=== PATIENT | female | born 1935 | race Caucasian/White ===

== ENCOUNTER 2019-03-27 13:10 | Outpatient (CLI) | payer MEDICARE, SELFPAY ==
--- NOTE | ~2019-03-27 | CT_ITS ---
EXAMINATION: CT hip RT wo con DATE: 03/27/2019 13:43 INDICATION: Right hip contusion TECHNIQUE: High resolution computed tomography (CT) of the right hip was performed without intravenou s contrast. Additional sagittal and coronal reconstructions were performed. Automated exposure contro l and iterative reconstruction technique were employed. The dose-length product was 137.26 mGy-cm. COMPARISON: Radiographs dated 03/02/2019 and MRI dated 02/22/2019 FINDINGS: Again seen is antegrade intramedullary brandi and dynamic femoral neck screw and distal interlocking scr ew fixation of a comminuted basicervical fracture of the proximal right femur which also involves the greater trochanter. No evident instrumentation failure or periprosthetic lucency to suggest loosenin g. There is some bridging callus formation between the main femoral head neck fragment in the distal diaphyseal fragment which are in near-anatomic alignment. A fragment comprising the posterior two thi rds of the greater trochanter which is not included within the fixation although it does abut the pos terior margin of the intramedullary brandi remains ununited and minimally distracted. There is a small a mount of nonbridging callus formation along the posterior margin of the fracture. There is increasing sclerosis along the still lucent fracture plane which raises concern for nonunion. No acute fracture s identified. Right hip joint alignment is normal with mild osteoarthritis. Lower lumbar spondylosis with moderate bilateral lower lumbar facet osteoarthritis and mild disc height loss with vacuum pheno wagoner at L5-S1. Interval decrease in size of a small loculated fluid collection extending laterally fr om the region of the proximal aspect of the intramedullary brandi into the subcutaneous fat most likely representing a postoperative seroma. There is no significant inflammatory stranding in the surroundin g fat to elevate concern for abscess. No evident right hip joint effusion. The uterus is not identifi ed and has likely been surgically resected. No pathologically enlarged right pelvic or inguinal lymph adenopathy. IMPRESSION: 1. Healing internally fixed comminuted basicervical/greater trochanteric fracture of the proximal rig ht femur which is in near-anatomic alignment. A posterior greater trochanteric fragment is not includ ed within the fixation remains minimally distracted and ununited with appearance raising suspicion fo r developing nonunion. 2. Interval decrease in size since prior MRI from a small loculated subcutaneous fluid collection ext ending laterally from the tip of the intramedullary brandi without surrounding inflammatory stranding mo st likely a postoperative seroma. Reviewed, dictated and finalized at location A. ER OUT IMPRESSION: 1. Healing internally fixed comminuted basicervical/greater trochanteric fractu re of the proximal right femur which is in near-anatomic alignment. A posterior greater trochanteric fragment is not included within the fixation remains mini roro distracted and ununited with appearance raising suspicion for developing nonunion. 2. Interval decrease in size since prior MRI from a small loculated subcutaneou s fluid collection extending laterally from the tip of the intramedullary brandi w ithout surrounding inflammatory stranding most likely a postoperative seroma.
== END 2019-03-27 13:11 | disposition home or self-care (01) ==
PROVIDERS: PCP Family Medicine; Visit Provider Orthopaedic Surgery
DX: S70.01XD Contusion of right hip, subsequent encounter (principal)
CPT/HCPCS: 73700

== ENCOUNTER 2020-10-31 16:13 | Observation (INO) | payer MEDICARE, MEDICAID, SELFPAY ==
--- NOTE | 2020-10-16 14:49 | PC.NURSE ---
NO CHANGE IN HEALTH HX FROM LAST INTERVIEW ON 09/23/20 PER TOR KELLY
--- NOTE | 2020-10-29 11:22 | PM.IMHP ---
H&P: HPI History of Present Illness Date/Time: 10/29/20 11:22 Pt presents with recurrent right hip pain that has been present for a few years. She sustained a IT femur fx the proceeded to have an IM brandi insertion, DOS 11/01/2018. She has had pain, continuously, then underwent an trochanteric bursitis injection 04/03/2020 which provided relief for a very short time. Hardware removal was discussed at her last appointment. She would like to discuss, at this time. Involved hip: right Onset: sudden Location of pain: lateral Pain scale (0-10): 7 Character: dull ache and other (sharp ) Timing of pain: constant Exacerbated by: sitting, weight bearing, activities of daily living and prolonged activity Relieved by: Tylenol, ice, heat and rest Associated symptoms: Reports back pain, leg pain at rest and weakness History of occupational/recreational activity with repetitive movement: No History of prior hip injury: Yes (Pt. DOI: was approx 5weeks ago ) Prior treatment: rest, ice and other (aspiration of the hematoma ) Chief Complaint: RIGHT HIP PAIN WITH PAINFUL HARDWARE Review of Systems Review of Systems: All systems reviewed & are unremarkable except as noted in HPI and below Constitutional: Constitutional: Reports as per HPI and Reports no additional constitutional complaints Eyes: Eyes: Reports no additional eye complaints Respiratory: Respiratory: Reports no additional respiratory complaints Musculoskeletal: Comments: RIGHT HIP PAIN Neurologic: Reports system reviewed and no additional complaints, except as documented and Reports Normal hearing present [facility] Past Medical History Medical History Anxiety Appendicitis Arthritis Change in vision Depressed High blood pressure Rheumatic arteritis Surgical History Surgical History H/O: hysterectomy History of appendectomy History of cholecystectomy Family History Family History Other Arthritis Social History Social History Smoking packs per day: 1 Smoking cigarettes per day: 20.0 Years smoked: 25 Smoking pack-years: 25.00 Smoking status: Former smoker Tobacco type: cigarettes Second hand tobacco smoke exposure: Yes Smoking end date: 02/08/99 Alcohol intake: unknown Substance use: unknown Spiritual care concerns: No Meds Home Medications and Allergies Home Medications Medication Instructions Recorded Confirmed Type acetaminophen 325 mg capsule 650 mg PO Q6H PRN 12/12/18 10/16/20 History docusate sodium 100 mg capsule 100 mg PO DAILY 12/12/18 10/16/20 History dorzolamide (PF) 2 % (PF) eye drops 1 drop RIGHT EYE BID 12/12/18 10/16/20 History metoprolol tartrate 25 mg tablet 12.5 mg PO BID 12/12/18 10/16/20 History omeprazole 20 mg capsule,delayed 20 mg PO DAILY 12/12/18 10/16/20 History release ondansetron 4 mg disintegrating 4 mg PO PRN PRN 12/12/18 10/16/20 History tablet sennosides 8.6 mg tablet 8.6 mg PO PRN PRN tablet 12/12/18 10/16/20 History gabapentin 100 mg PO TID 09/20/20 10/16/20 History hydrocodone-acetaminophen 1 tablet PO TID 09/20/20 10/16/20 History lisinopril 10 mg PO DAILY 09/20/20 10/16/20 History mirtazapine 7.5 mg PO HS 09/20/20 10/16/20 History prednisolone acetate 1 drp RIGHT EYE BID 09/20/20 10/16/20 History trazodone 100 mg PO HS 09/20/20 10/16/20 History diclofenac sodium 1 ea TOPICAL DAILY 10/16/20 10/16/20 History trazodone 50 mg PO HS 10/16/20 10/16/20 History Allergies Allergy/AdvReac Type Severity Reaction Status Date / Time latex Allergy Unknown Hives / Verified 10/16/20 14:28 Red Face Penicillins Allergy Unknown Unknown Verified 10/16/20 14:28 MELINDA BANDAGE Allergy Mild HIVES Uncoded 10/16/20 14:28 Exam Extrem: Right lower extremity: normal to inspection, full ROM, normal capill
--- NOTE | 2020-10-29 11:34 | WPDHPUPDATE1 ---
History and Physical Update Update Date/Time: 10/29/20 11:34 History and Physical has been reviewed, including an updated exam of the patient. There are NO changes in the patient's condition. Risks, benefits, and alternatives have been discussed and questions answered. Patient agrees to proceed with procedure.
[2020-10-30] VITALS (24 sets, daily range): BP systolic 133–181; BP diastolic 56–100; PULSE 65–100; RESP 10–20; TEMP 36.4–37.6; O2SAT 92–100; BMI 16.8
[2020-10-30] MEDS: ACETAMINOPHEN 500 MG TABLET 1000 MG PO (08:55)
[2020-10-30] MEDS: CELECOXIB 200 MG CAPSULE PO (08:56)
[2020-10-30] MEDS: LACTATED RINGERS 1,000 ML 30 ML IV CONT ×2 (09:26→13:32)
[2020-10-30] MEDS: fentaNYL CITRATE INJ (*CRX) 100 MCG/2 ML VIAL 25 MCG IV PUSH ×14 (09:47→15:10)
--- NOTE | 2020-10-30 09:47 | WPDANESEPPF ---
Anes - Initial Pre Proc Eval Procedure: Operation Date: 10/30/20 10:30 Proposed Procedures p Right Hip Gamma Nail Removal - Arnulfo Singleton MD Date/Time: 10/30/20 09:47 Surgeon: Arnulfo Singleton MD Pre Op Diagnosis: right hip painful hardware Patient Data Age: 85 Gender: F Height: 1.57 m Weight: 41.7 kg Last Vital Signs Temp 36.7 C 10/30/20 09:34 Pulse 68 10/30/20 09:34 Resp 20 10/30/20 09:34 BP 181/83 H 10/30/20 09:34 Pulse Ox 96 10/30/20 09:34 Allergies Allergy/AdvReac Type Severity Reaction Status Date / Time latex Allergy Unknown Hives / Verified 10/30/20 08:58 Red Face Penicillins AdvReac Unknown Rash Verified 10/30/20 08:58 MELINDA BANDAGE Allergy Mild HIVES Uncoded 10/16/20 14:28 Home Medications Medication Instructions Recorded Confirmed Type acetaminophen 325 mg capsule 650 mg PO Q6H PRN 12/12/18 10/30/20 History docusate sodium 100 mg capsule 100 mg PO DAILY 12/12/18 10/30/20 History dorzolamide (PF) 2 % (PF) eye drops 1 drop RIGHT EYE BID 12/12/18 10/30/20 History metoprolol tartrate 25 mg tablet 12.5 mg PO BID 12/12/18 10/30/20 History omeprazole 20 mg capsule,delayed 20 mg PO DAILY 12/12/18 10/30/20 History release ondansetron 4 mg disintegrating 4 mg PO PRN PRN 12/12/18 10/30/20 History tablet sennosides 8.6 mg tablet 8.6 mg PO PRN PRN tablet 12/12/18 10/30/20 History gabapentin 100 mg PO TID 09/20/20 10/30/20 History hydrocodone-acetaminophen 1 tablet PO TID 09/20/20 10/30/20 History lisinopril 10 mg PO DAILY 09/20/20 10/30/20 History mirtazapine 7.5 mg PO HS 09/20/20 10/30/20 History prednisolone acetate 1 drp RIGHT EYE BID 09/20/20 10/30/20 History trazodone 100 mg PO HS 09/20/20 10/30/20 History diclofenac sodium 1 ea TOPICAL DAILY 10/16/20 10/30/20 History trazodone 50 mg PO HS 10/16/20 10/30/20 History Patient hx anesthesia problems: none Family hx anesthesia problems: none PMFSH Past Medical History Medical History Anxiety Appendicitis Arthritis Change in vision Depressed High blood pressure Rheumatic arteritis Surgical History Surgical History H/O: hysterectomy History of appendectomy History of cholecystectomy Family History Family History Other Arthritis Social History Social History Smoking packs per day: 1 Smoking cigarettes per day: 20.0 Years smoked: 25 Smoking pack-years: 25.00 Smoking status: Former smoker Tobacco type: cigarettes Second hand tobacco smoke exposure: Yes Smoking end date: 02/08/99 Alcohol intake: unknown Substance use: unknown Living arrangements: residential Spiritual care concerns: No Anes - Eval Final PreProcedure Day of Procedure 10/30/20 09:47 Patient weight: thin Heart: regular rate and rhythm Lungs: clear to auscultation Airway: Mallampati scale class II Neurological: other (alert) Last oral intake: >/= 8 hours ASA classification: III Emergent: no Anesthetic plan: proceed Anesthesia type and monitoring: general ETT and standard monitoring Informed Consent: The patient's anesthetic plan and its attendant risks and benefits were discussed with the patient/family/POA. Questions were solicited and answers provided to the satisfaction of the patient/family/POA.
--- NOTE | 2020-10-30 09:50 | SUR.PREOP ---
Patient is wheelchair bound and does not require crutch or walker training.
--- NOTE | 2020-10-30 10:32 | WPDHPUPDATE1 ---
History and Physical Update Update Date/Time: 10/30/20 10:32 History and Physical has been reviewed, including an updated exam of the patient. There are NO changes in the patient's condition. Risks, benefits, and alternatives have been discussed and questions answered. Patient agrees to proceed with procedure.
[2020-10-30] MEDS: ceFAZolin 2 GM/D5W 50 ML 2 GM/50 ML BAG IVPB (10:38)
--- NOTE | 2020-10-30 12:21 | W.PM.PROC2 ---
Procedure Note - Detailed Date of Procedure 10/30/20 Pre-op Diagnosis right hip painful hardware Post-op Diagnosis same Procedure Performed REMOVAL OF GAMMA NAIL RIGHT FEMUR Surgeon Arnulfo Singleton MD Anesthesia general Indications RIGHT HIP PAINFULL HARDWARE Findings HEALED FRACTURE ON FLUOROSCOPY Description of Procedure THE PATIENT WAS TAKEN TO THE OPERATING ROOM IN STABLE CONDITION AND GENERAL ANESTHESIA WAS INDUCED. SHE WAS PLACED ON A FRACTURE TABLE. THE RIGHT HIP WAS IMAGED AND TAKEN THROUGH A ROM UNDER FLUOROSCOPY. THERE WAS NO SIGN OF NON UNION OR HARDWARE FAILURE. NEXT THE RIGHT LOWER EXTREMITY WAS PREPPED AND DRAPED IN THE USUAL STERILE FASHION. AN INCISION WAS MADE OVER THE OLD INCISION FIRST OVER THE DISTAL LOCKING SCREW. THE SCREW WAS REMOVED IN ITS ENTIRETY. NEXT AN INCISION WAS MADE OVER THE MOST PROXIMAL SCAR AND THE SET SCREW WAS REMOVED IN ITS ENTIRETY. NEXT THE MIDDLE SCAR WAS INCISED AND DISSECTION CONTINUED DOWN TO THE LAG SCREW WHICH WAS THEN REMOVED WELL IN ITS ENTIRETY. THE MADHAVI THEN WAS REMOVED WITH A SLAP INSTRUMENT. . NEXT THE HIP AND PROXIMAL FEMUR WAS IMAGED WITH THE C-ARM. THERE WAS NO SIGN OF NON UNION. THE HEALED BONE WAS OBVIOUS AND THE HIP AND PROXIMAL FEMUR MOVED IN UNISON. THE WOUNDS WERE IRRIGATED. THE WOUNDS WERE APPROXIMATED WITH O VICRYL, 2-0 VICRYL AND A QUIL STITCH ON THE SUBCUTICULAR LAYER, AND DERMABOND WAS USED ON THE SKIN. STERILE DRESSING WAS APPLIED. PATIENT WAS EXTUBATED AND SENT TO RECOVERY ROOM Estimated Blood Loss 50 Complications No immediate complications Condition stable Disposition PACU
--- NOTE | 2020-10-30 16:15 | ADMGEN ---
This patient, Gema Laughlin, was admitted to 2 Medical Room 242-. Patient/family oriented to hospital policies and general routines including ID bracelet, bed and alarms, visiting hours, pain management, procedures, bathroom and other care routines, personal items, smoking policy, room service/diet, and visiting hours. Information on how to activate the Rapid Response Team has been discussed. Patient/Family are encouraged to report perceived risks to care and to ask questions if they do not understand what they are told or what they should do.
--- NOTE | 2020-10-30 16:25 | WPDCN ---
Assessment and Plan Assessment and plan (1) Painful orthopaedic hardware: Code(s): T84.84XA - Pain due to internal orthopedic prosthetic devices, implants and grafts, initial encounter Status: Acute (2) Hypertension: Code(s): I10 - Essential (primary) hypertension Status: Acute (3) Depression with anxiety: Code(s): F41.8 - Other specified anxiety disorders Status: Acute (4) Glaucoma: Code(s): H40.9 - Unspecified glaucoma Status: Chronic (5) Gastroesophageal reflux disease: Code(s): K21.9 - Gastro-esophageal reflux disease without esophagitis Status: Acute Additional Plan The patient is postoperative day 0 status post removal of gamma nail from the right femur. Wound care and pain control will be deferred to Dr. Singleton as well as DVT prophylaxis. Blood pressures were elevated postoperatively but have improved with pain control. Her home medications have been reviewed and resumed as appropriate. Thank you for allowing us to participate in this patient's care. Please do not hesitate to contact us with any questions. Supervising physician for this medical consultation is Dr. Arlette Juarez. HPI Data of Consult Date/Time: 10/30/20 16:25 Requesting Physician: Arnulfo Singleton MD Primary Care Provider: Abelino Cooper, Consult Narrative Narrative: This is an 85-year-old female with history of hypertension, GERD, glaucoma, depression, and anxiety whom the hospitalist service has been consulted for management of her medical conditions in the postoperative setting. She sustained a right intertrochanteric femur fracture treated with IM gamma brandi insertion in October 2018. Unfortunately she has had recurrent issues with pain in that right hip including a bout of trochanteric bursitis for which she received injections without long-lasting relief. Due to ongoing pain she opted for removal of hardware which was performed today under general anesthesia per Dr. Singleton. No immediate complications were documented an estimated blood loss was 50 mL. At the time my evaluation she is complaining of sharp shooting pain, rated 9/10, and she is telling me that the IV pain medications that they have been giving her ?are just not working. She denies fever, chills, sweats, chest pain, shortness of breath, nausea, and vomiting. She also denies paresthesias, skin color, temperature changes distal to the surgical site. Review of Systems Review of Systems: Twelve systems were reviewed. No fever, chills, or sweats. No recent cold or flu symptoms. She denies chest pain, pleuritic pain, shortness of breath. No nausea, vomiting, or dysuria. The patient is blind and spends majority of her time in the wheelchair though she is able to pivot transfer. Denies history of venous thromboembolism. Except as documented, all other systems were reviewed and are negative. [facility] Past Medical History Medical History (Updated 10/31/20 @ 02:53 by Isa Morales PA-C) Arthritis Arthritis Depression with anxiety Gastroesophageal reflux disease Glaucoma History of peptic ulcer Hypertension Legal blindness Rheumatic arteritis Surgical History Surgical History (Updated 10/31/20 @ 02:53 by Isa Morales PA-C) History of appendectomy History of arthroscopy of right knee History of bilateral cataract extraction History of cholecystectomy History of corneal transplant History of gastrectomy (1979) Secondary to peptic ulcers. History of hysterectomy History of repair of hip fracture (10/2018) IT Gamma brandi with subsequent hardware removal on 10/30/2020. Family History Family History (Updated 10/31/20 @ 02:54 by Isa Morales PA-C) Father Venous thromboembolism Mother Acute myocardial infarction Sibl
[2020-10-30] MEDS: HYDROcodone/acetaminophen (*CRX) 7.5-325 MG TABLET 1 TAB PO (17:10)
[2020-10-30] MEDS: DOCUSATE SODIUM 100 MG CAPSULE PO (17:10)
[2020-10-30] MEDS: GABAPENTIN 100 MG CAPSULE PO (17:33)
[2020-10-30] MEDS: MORPHINE SULFATE (*CRX) 2 MG/ML INJ IV PUSH (19:41)
[2020-10-30] MEDS: DORZOLAMIDE/TIMOLOL OPHTH SOL 10 ML BOTTLE 1 DROP RIGHT EYE (20:53)
[2020-10-30] MEDS: prednisoLONE ACETATE 1% OPHTH 5 ML 1 DROP RIGHT EYE (20:53)
[2020-10-30] MEDS: traZODone HCL 50 MG TABLET 100 MG PO (20:54)
[2020-10-30] MEDS: traZODone HCL 50 MG TABLET PO (20:54)
[2020-10-30] MEDS: METOPROLOL TARTRATE 12.5 MG TABLET PO (20:54)
[2020-10-30] MEDS: MIRTAZAPINE 7.5 MG TABLET PO (20:54)
[2020-10-31] VITALS (11 sets, daily range): BP systolic 105–135; BP diastolic 53–74; PULSE 70–98; RESP 14–18; TEMP 36.4–37.1; O2SAT 93–98; BMI 16.8
--- NOTE | ~2020-10-31 | XR_ITS ---
EXAMINATION: XR surgery orthopedic EXAM DATE: 10/30/2020 11:45 INDICATION: Right hip gamma nail removal. TECHNIQUE: Fluoroscopy used during XR surgery orthopedic performed by Dr. Arnulfo Singleton MD. Rad iologist was not present for the imaging or procedure. Total fluoroscopic time of 263 seconds. The DAP for this procedure was 0.6 mGym2. A total of 7 images sent to PACS from the exam. Correlation is made to x-ray 08/19/2020. FINDINGS: Initial image demonstrates right hip gamma nail. Subsequent images demonstrates lucency in the bone at location of previous hardware following removal. Correlate with procedure note. IMPRESSION: Fluoroscopy used during right hip gamma nail removal. Reviewed, dictated and finalized at location B.
[2020-10-31] MEDS: MORPHINE SULFATE (*CRX) 2 MG/ML INJ IV PUSH ×4 (00:12→14:53)
[2020-10-31] MEDS: HYDROcodone/acetaminophen (*CRX) 7.5-325 MG TABLET 1 TAB PO ×2 (03:05→08:48)
[2020-10-31 04:12] LABS: Basophils Percent Auto 0.5 % (0.2-1.2); Hematocrit 33.6 % (37.0-47.0); Hemoglobin 10.9 g/dL (12.0-15.0); Immature Granulocyte Absolute 0.02 K/mm3 (0.00-0.031); Immature Granulocyte Percent A 0.3 % (0-0.5); Lymphocytes Percent Auto 19.2 % (18.3-44.2); Mean Corpuscular HGB Conc 32.4 g/dl (32-36); Mean Corpuscular Volume 86.4 fl (80-100); Mean Platelet Volume 9.5 fl (7.4-10.4); Monocytes Absolute Auto 0.6 K/mm3 (0.1-0.6); Monocytes Percent Auto 9.1 % (2.6-8.5); Neutrophils Absolute Auto 4.4 K/mm3 (1.3-6.7); Neutrophils Percent Auto 70.9 % (45.5-73.1); Platelet Count Result 222 k/mm3 (150-375); Red Blood Count 3.89 M/mm3 (4.2-5.4); Red Cell Distribution Width 13.7 % (11.5-14.5); White Blood Count 6.3 K/mm3 (4.5-10.0)
[2020-10-31 04:28] LABS: Anion Gap 3 mmol/L (8-16); Blood Urea Nitrogen 11 mg/dL (7-17); Calcium 8.8 mg/dL (8.4-10.2); Carbon Dioxide 32 mmol/L (22-30); Chloride 101 mmol/L (98-107); Estimated CRCL calculation 38 ml/min; Estimated Glomerular Filt Rate > 60; Glucose 108 mg/dL (65-110); Potassium 4.3 mmol/L (3.4-5.0); Sodium 136 mmol/L (137-145)
--- NOTE | 2020-10-31 07:25 | P.PNAN_ITS ---
Anes - Prog Note Post-Op Date/Time: 10/31/20 07:25 Cardiovascular status: normal Respiratory status: normal Airway patency: baseline Mental status: baseline Post-Op hydration status: normal Vital Signs: Last Vital Signs Temp 97.5 F L 10/31/20 06:07 Pulse 78 10/31/20 06:07 Resp 14 10/31/20 06:07 BP 114/56 L 10/31/20 06:07 Pulse Ox 94 10/31/20 06:07 Pain Score (VAS): MARTA I/O: Intake & Output 10/30/20 10/30/20 10/31/20 15:59 23:59 07:59 Intake Total 450 290 400 Output Total 1400 1400 Balance 450 -6080 1000 Laboratory Tests 10/31/20 03:50 10/31/20 03:50 10/31/20 10/31/20 03:50 03:50 WBC 6.3 RBC 3.89 L Hgb 10.9 L Hct 33.6 L MCV 86.4 MCH 28.0 MCHC 32.4 RDW 13.7 Plt Count 222 MPV 9.5 Immature Gran % (Auto) 0.3 Neut % (Auto) 70.9 Lymph % (Auto) 19.2 Colbert % (Auto) 9.1 H Eos % (Auto) 0.0 Baso % (Auto) 0.5 Lymph # (Auto) 1.20 Colbert # (Auto) 0.6 Eos # (Auto) 0.0 Baso # (Auto) 0.0 Abs Immat Gran (auto) 0.02 Absolute Neuts (auto) 4.4 Absolute Nucleated RBC 0.0 Nucleated RBC % 0.0 Sodium 136 L Potassium 4.3 Chloride 101 Carbon Dioxide 32 H Anion Gap 3 L BUN 11 Creatinine 0.60 L Estim Creat Clear Calc 38 Estimated GFR > 60 Glucose 108 Calcium 8.8 Post-procedural complaints: none Patient Feedback: Patient satisfied with anesthetic care.
[2020-10-31] MEDS: PANTOPRAZOLE 40 MG TABLET PO (08:41)
[2020-10-31] MEDS: lisinopriL 10 MG TABLET PO (08:41)
[2020-10-31] MEDS: DOCUSATE SODIUM 100 MG CAPSULE PO (08:41)
[2020-10-31] MEDS: GABAPENTIN 100 MG CAPSULE PO ×3 (08:41→16:19)
[2020-10-31] MEDS: METOPROLOL TARTRATE 12.5 MG TABLET PO ×2 (08:41→21:26)
[2020-10-31] MEDS: prednisoLONE ACETATE 1% OPHTH 5 ML 1 DROP RIGHT EYE ×2 (08:41→21:26)
[2020-10-31] MEDS: DORZOLAMIDE/TIMOLOL OPHTH SOL 10 ML BOTTLE 1 DROP RIGHT EYE ×2 (08:41→21:26)
--- NOTE | 2020-10-31 09:20 | PM.IMPN ---
Progress Note: A&P Assessment and Plan (1) Painful orthopaedic hardware: Code(s): T84.84XA - Pain due to internal orthopedic prosthetic devices, implants and grafts, initial encounter Status: Acute Assessment and Plan: Status post removal of gamma nail from the right femur postop day 1 - patient continues to have pain 9/10 but has not had her pain medication yet. The nurse is at bedside and will give this to her - continue [place] now and see how she does. May consider a trial of oxycodone or other medications if this does not improve - continue nonweightbearing status x6 weeks - okay to discharge from medical standpoint when ortho is ready (2) Hypertension: Code(s): I10 - Essential (primary) hypertension Status: Acute Assessment and Plan: last blood pressure 135/61 - continue lisinopril and metoprolol (3) Depression with anxiety: Code(s): F41.8 - Other specified anxiety disorders Status: Acute Assessment and Plan: the patient has chronic depression so worsened with this hip pain but is hopeful that she can walk again 1 day - continue Remeron (4) Glaucoma: Code(s): H40.9 - Unspecified glaucoma Status: Chronic Assessment and Plan: chronic with changes noted. Continue eyedrops (5) Gastroesophageal reflux disease: Code(s): K21.9 - Gastro-esophageal reflux disease without esophagitis Status: Acute Assessment and Plan: chronic and no complaints today - continue Protonix Time Spent With Patient Time with patient: 25 - 35 minutes Subjective Date/time seen: 10/31/20 09:20 Interval history: Pt is a 85-year-old female here for hip pain status post surgery. Patient was seen today and states she currently has a 9/10 hip pain in her right hip. She has no numbness, tingling or swelling to the leg. She does not have much of an appetite but that is pretty chronic for her. Her last bowel movement was on Wednesday. She has been in the wheelchair for most of the time since her hip fracture is hopeful to walk again 1 day. I did speak with her and family at bedside that it may be a long road since she has been more sedentary for so long. They understand that she needs to be non weight-bearing for 6 weeks. patient has no chest pain or shortness of breath Review of Systems Review of Systems: All systems reviewed & are unremarkable except as noted in HPI and below Exam Narrative: General: Well developed well nourished patient in NAD HEENT: normocephalic, changes from glaucoma noted Neck: supple Neuro: Alert and oriented. Sensation and pulses intact in the lower extremities. CV:RRR With a slight murmur Resp:CTA, no rhonchi, wheezing or conversational dyspnea Abd: Soft, non distended. No pain to palpation. Positive bowel sounds Extremities: right hip with bandage the without excessive bleeding noted. No knee swelling to the lower extremities Objective Data Vital Signs Vital Signs: Vital Signs - 24 hr 10/30/20 09:34 10/30/20 12:17 10/30/20 12:30 Temperature 98.0 F 97.8 F Pulse Rate 68 65 88 Respiratory Rate 20 10 L 14 Blood Pressure 181/83 H 151/74 H 155/87 H Pulse Oximetry 96 100 98 10/30/20 12:45 10/30/20 13:00 10/30/20 13:15 Temperature Pulse Rate 88 79 79 Respiratory Rate 16 12 16 Blood Pressure 166/77 H 166/77 H 158/90 H Pulse Oximetry 100 100 99 10/30/20 13:30 10/30/20 13:45 10/30/20 14:00 Temperature Pulse Rate 74 69 69 Respiratory Rate 18 12 14 Blood Pressure 147/71 H 142/81 H 154/70 H Pulse Oximetry 97 100 99 10/30/20 14:15 10/30/20 14:30 10/30/20 14:45 Temperature Pulse Rate 82 78 72 Respiratory Rate 13 12 14 Blood Pressure 147/77 H 178/87 H 133/61 Pulse Oximetry 100 98 98 10/30/20 15:00 10/30/20 15:15 10/30/20 15:30 Temperature Pulse Rate 68 74 69 Respiratory Rate 14 14 12 Blood Pressure 142/56 H 145/60 H 145/62 H Pulse Oximetry 98 98 97
--- NOTE | 2020-10-31 09:48 | PC.NURSE ---
Patient's POA came out the desk before leaving and told me patient's pain is still out of control and the [place] did not help her pain. I walked into the patient's room to assess her pain and the patient was sleeping comfortably. Will continue to monitor pain.
--- NOTE | 2020-10-31 13:16 | PC.NURSE ---
while I was on lunch the patient told another nurse that her pain was not controlled. Upon returning from lunch I went to assess the patient's pain. The patient is sleeping. Appears to be resting comfortable. Will speak to the physician about pain medications.
--- NOTE | 2020-10-31 15:57 | PM.PNORT ---
Progress Note: A&P Assessment and Plan (1) Painful orthopaedic hardware: Code(s): T84.84XA - Pain due to internal orthopedic prosthetic devices, implants and grafts, initial encounter Status: Acute Assessment and Plan: POD #1: REMOVAL OF GAMMA NAIL RIGHT FEMUR Difficulty with pain control. PO Pain Medication Q3hr with IV breakthrough. Ice lateral hip. PT/OT. NWB RLE. OOB to Chair. SCDs. Incentive Spirometry. Monitor dressing. Change tomorrow. Apply island dressing. Dispo: Return to SNF when pain controlled and medically cleared. Subjective Subjective Date/Time Seen: 10/31/20 15:57 Post Op day: 1 Principal diagnosis: REMOVAL OF GAMMA NAIL RIGHT FEMUR Interval history: POD #1: Removal of Gamma Nail Right Femur Difficulty with Pain Control. Otherwise, no complaints. Review of Systems Review of Systems: All systems reviewed & are unremarkable except as noted in HPI and below Exam Const: General: comfortable and no acute distress Resp: Effort & Inspection: normal respiratory effort GI: Inspection: non-distended GI Palp: Yes Soft to palpation and No Tenderness to palpation present (GI) Skin: General skin exam: normal color Wounds: wounds noted (Incision right hip c/d/i. ) Neuro: General: No gait normal Cognition (Neuro): normal cognition Extrem: Right lower extremity: hip/thigh (Thigh Soft ) Details: tenderness Location: of the hip Location: anteriorly, posteriorly, anterolaterally and posteromedially, swelling Location: at the hip and abnormal ROM Details: pain with active ROM during (consistent with recent surgery ), knee Details: normal to inspection; no tenderness and no swelling, lower leg (Negative Dat's Sign ) Details: normal to inspection, ankle (+ankle dorsiflexion/plantarflexion ) and foot (2+ pedal pulses. ) Details: normal capillary refill and motor-sensory exam Details: light-touch normal Psych: Mental Status: mental status grossly normal Thought content: Yes Normal thought content present Objective Data Vital Signs Vital Signs: Vital Signs - 24 hr 10/30/20 16:02 10/30/20 16:15 10/30/20 16:32 Temperature 36.6 C 37.0 C Pulse Rate 79 100 Respiratory Rate 16 16 Blood Pressure 153/72 H 154/83 H Pulse Oximetry 95 100 92 10/30/20 17:32 10/30/20 20:00 10/30/20 20:39 Temperature 37.6 C 36.4 C Pulse Rate 99 100 100 Respiratory Rate 16 16 16 Blood Pressure 163/85 H 135/67 Pulse Oximetry 95 95 95 10/30/20 20:54 10/31/20 01:16 10/31/20 06:07 Temperature 36.6 C 36.4 C L Pulse Rate 100 98 78 Respiratory Rate 16 14 Blood Pressure 130/69 114/56 L Pulse Oximetry 96 94 10/31/20 08:40 10/31/20 08:41 10/31/20 09:00 Temperature 37.1 C Pulse Rate 70 75 Respiratory Rate 18 Blood Pressure 135/61 Pulse Oximetry 94 94 10/31/20 13:32 Temperature 36.9 C Pulse Rate 79 Respiratory Rate 16 Blood Pressure 130/71 Pulse Oximetry 96 Intake/Output Intake/Output: Intake & Output 10/28/20 10/29/20 10/30/20 10/31/20 23:59 23:59 23:59 23:59 Intake Total 740 730 Output Total 1400 1400 Balance -660 -670 Meds/Results Medications: Active Medications Generic Name Dose Route Start Last Admin Trade Name Freq PRN Reason Stop Dose Admin Acetaminophen 650 mg 10/30/20 15:47 Acetaminophen 325 Mg Tablet PO Q6H PRN Pain 1-3 Hydrocodone Bitart/Acetaminophen 1 tab 10/30/20 15:47 10/31/20 08:48 Hydrocodone/Acetaminophen (*Crx) 7.5-325 Mg Tablet PO 1 tab Q3H PRN Administration Pain Rated 4-6 Diazepam 5 mg 10/30/20 15:47 Diazepam (*Crx) 5 Mg Tablet PO Q8H PRN Muscle Spasm Docusate Sodium 100 mg 10/31/20 09:00 10/31/20 08:41 Docusate Sodium 100 Mg Capsule PO 100 mg DAILY MUSHTAQ Administration Dorzolamide/Timolol 1 drop 10/30/20 21:00 10/31/20 08:41 Dorzolamide/Timolol Ophth [place] 10 Ml Bottle RIGHT EYE 1 drop Q12HR MUSHTAQ Administration Gabapentin 100 mg 10/30/20 15:47 10/31/20 12:
[2020-10-31] MEDS: KETOROLAC 15 MG/ML VIAL (*BKC) IV PUSH (16:19)
[2020-10-31] MEDS: traZODone HCL 50 MG TABLET PO (21:25)
[2020-10-31] MEDS: MIRTAZAPINE 7.5 MG TABLET PO (21:25)
[2020-10-31] MEDS: traZODone HCL 50 MG TABLET 100 MG PO (21:26)
[2020-10-31] MEDS: ONDANSETRON INJ 4 MG/2 ML VIAL IV PUSH (21:34)
[2020-11-01 03:35] VITALS: BP 100/42; PULSE 67; RESP 17; TEMP 36.6; O2SAT 94
[2020-11-01] MEDS: MORPHINE SULFATE (*CRX) 2 MG/ML INJ IV PUSH (05:26)
[2020-11-01 08:55] VITALS: PULSE 77
[2020-11-01] MEDS: DOCUSATE SODIUM 100 MG CAPSULE PO (08:55)
[2020-11-01] MEDS: GABAPENTIN 100 MG CAPSULE PO ×2 (08:55→11:58)
[2020-11-01] MEDS: METOPROLOL TARTRATE 12.5 MG TABLET PO (08:55)
[2020-11-01] MEDS: prednisoLONE ACETATE 1% OPHTH 5 ML 1 DROP RIGHT EYE (08:55)
[2020-11-01] MEDS: PANTOPRAZOLE 40 MG TABLET PO (08:55)
[2020-11-01] MEDS: lisinopriL 10 MG TABLET PO (08:55)
[2020-11-01] MEDS: DORZOLAMIDE/TIMOLOL OPHTH SOL 10 ML BOTTLE 1 DROP RIGHT EYE (08:56)
[2020-11-01] MEDS: HYDROcodone/acetaminophen (*CRX) 7.5-325 MG TABLET 1 TAB PO (08:56)
--- NOTE | 2020-11-01 09:55 | PM.PNORT ---
Progress Note: A&P Assessment and Plan (1) Painful orthopaedic hardware: Code(s): T84.84XA - Pain due to internal orthopedic prosthetic devices, implants and grafts, initial encounter Status: Acute Assessment and Plan: POD #2: REMOVAL OF GAMMA NAIL RIGHT FEMUR Improvement in pain control. PO Pain Medication Q3hr with IV breakthrough. Ice lateral hip. PT/OT. NWB RLE. OOB to Chair. SCDs. Incentive Spirometry. Dressing changed. Mepilex Silver dressing in place. Thigh soft. Dispo: SNF Subjective Subjective Date/Time Seen: 11/01/20 09:55 Post Op day: 2 Interval history: POD #2: Removal of Gamma Nail Right Femur Difficulty with Pain Control. Otherwise, no complaints. Review of Systems Review of Systems: All systems reviewed & are unremarkable except as noted in HPI and below Exam Const: General: comfortable and no acute distress Resp: Effort & Inspection: normal respiratory effort GI: Inspection: non-distended GI Palp: Yes Soft to palpation and No Tenderness to palpation present (GI) Skin: General skin exam: normal color Wounds: wounds noted (Incision right hip c/d/i. ) Neuro: General: No gait normal Cognition (Neuro): normal cognition Extrem: Right lower extremity: hip/thigh (Thigh Soft ) Details: tenderness Location: of the hip Location: anteriorly, posteriorly, anterolaterally and posteromedially, swelling Location: at the hip and abnormal ROM Details: pain with active ROM during (consistent with recent surgery ), knee Details: normal to inspection; no tenderness and no swelling, lower leg (Negative Dat's Sign ) Details: normal to inspection, ankle (+ankle dorsiflexion/plantarflexion ) and foot (2+ pedal pulses. ) Details: normal capillary refill and motor-sensory exam Details: light-touch normal Psych: Mental Status: mental status grossly normal Thought content: Yes Normal thought content present Objective Data Vital Signs Vital Signs: Vital Signs - 24 hr 10/31/20 13:32 10/31/20 17:32 10/31/20 19:28 Temperature 36.9 C 36.9 C 36.4 C L Pulse Rate 79 78 78 Respiratory Rate 16 16 17 Blood Pressure 130/71 130/74 115/53 L Pulse Oximetry 96 98 96 10/31/20 20:00 10/31/20 21:26 10/31/20 23:31 Temperature 36.6 C Pulse Rate 75 78 75 Respiratory Rate 17 17 Blood Pressure 105/53 L Pulse Oximetry 93 93 11/01/20 03:35 11/01/20 08:55 Temperature 36.6 C Pulse Rate 67 77 Respiratory Rate 17 Blood Pressure 100/42 L Pulse Oximetry 94 Intake/Output Intake/Output: Intake & Output 10/29/20 10/30/20 10/31/20 11/01/20 23:59 23:59 23:59 23:59 Intake Total 740 730 50 Output Total 1400 1600 300 Balance -660 -870 -250 Meds/Results Medications: Active Medications Generic Name Dose Route Start Last Admin Trade Name Freq PRN Reason Stop Dose Admin Acetaminophen 650 mg 10/30/20 15:47 Acetaminophen 325 Mg Tablet PO Q6H PRN Pain 1-3 Hydrocodone Bitart/Acetaminophen 1 tab 10/30/20 15:47 11/01/20 08:56 Hydrocodone/Acetaminophen (*Crx) 7.5-325 Mg Tablet PO 1 tab Q3H PRN Administration Pain Rated 4-6 Diazepam 5 mg 10/30/20 15:47 Diazepam (*Crx) 5 Mg Tablet PO Q8H PRN Muscle Spasm Docusate Sodium 100 mg 10/31/20 09:00 11/01/20 08:55 Docusate Sodium 100 Mg Capsule PO 100 mg DAILY MUSHTAQ Administration Dorzolamide/Timolol 1 drop 10/30/20 21:00 11/01/20 08:56 Dorzolamide/Timolol Ophth [place] 10 Ml Bottle RIGHT EYE 1 drop Q12HR MUSHTAQ Administration Gabapentin 100 mg 10/30/20 15:47 11/01/20 08:55 Gabapentin 100 Mg Capsule PO 100 mg TID MUSHTAQ Administration Ketorolac Tromethamine 15 mg 10/31/20 13:24 10/31/20 16:19 Ketorolac 15 Mg/Ml Vial (*Bkc) IV PUSH 15 mg Q6H PRN Administration Breakthrough Pain Lisinopril 10 mg 10/31/20 09:00 11/01/20 08:55 Lisinopril 10 Mg Tablet PO 10 mg DAILY MUSHTAQ Administration Magnesium Hydroxide 30 ml 10/30/20 15:47 Magnesium Hydroxi
[2020-11-01] MEDS: MAGNESIUM HYDROXIDE SUSP 30 ML UDC PO (11:58)
[2020-11-01 14:00] VITALS: BP 90/41; BP 94/52; PULSE 71; RESP 16; TEMP 37.3; O2SAT 92
[2020-11-01] MEDS: ACETAMINOPHEN 325 MG TABLET 650 MG PO (14:30)
[2020-11-01 14:32] LABS: EDCOVIDSCREEN Negative (Negative)
[2020-11-01 15:25] VITALS: BP 105/49
--- NOTE | 2020-11-12 12:08 | PM.DS ---
DS: Admitting Diagnosis Discharge Date 11/01/20 Admitting Diagnosis Painful orthopedic hardware right hip DS: Discharge Diagnosis Discharge Diagnosis (1) Painful orthopaedic hardware: Code(s): T84.84XA - Pain due to internal orthopedic prosthetic devices, implants and grafts, initial encounter Status: Acute Assessment and Plan: POD #2: REMOVAL OF GAMMA NAIL RIGHT FEMUR Improvement in pain control. PO Pain Medication Q3hr with IV breakthrough. Ice lateral hip. PT/OT. NWB RLE. OOB to Chair. SCDs. Incentive Spirometry. Dressing changed. Mepilex Silver dressing in place. Thigh soft. Dispo: SNF DS: Summary Hospital Course Reason for hospitalization: painful orthopedic hardware right hip Hospital Course: 85-year-old female admitted status post removal of painful orthopedic hardware of her right hip. She had a removal of her gamma brandi. She had difficulty with pain control on postop day 1 and postop day 2. She had difficulty working with PT and OT due to pain control. Her pain slowly improved on postop day 2 when she was felt safe to be discharged to [facility]. Patient will follow-up in the Outpatient Orthopedic clinic. Status at Discharge Functional status at discharge: uses cane/walker (Max Assist ) Overall status at discharge: patient is progressing back to baseline Time Spent with Patient Time attestation: Total time spent providing and/or coordinating discharge services: Exam Const: General: comfortable and no acute distress Resp: Effort & Inspection: normal respiratory effort GI: Inspection: non-distended GI Palp: Yes Soft to palpation and No Tenderness to palpation present (GI) Skin: General skin exam: normal color Wounds: wounds noted (Incision right hip c/d/i. ) Neuro: General: No gait normal Cognition (Neuro): normal cognition Extrem: Right lower extremity: hip/thigh (Thigh Soft ) Details: tenderness Location: of the hip Location: anteriorly, posteriorly, anterolaterally and posteromedially, swelling Location: at the hip and abnormal ROM Details: pain with active ROM during (consistent with recent surgery ), knee Details: normal to inspection; no tenderness and no swelling, lower leg (Negative Dat's Sign ) Details: normal to inspection, ankle (+ankle dorsiflexion/plantarflexion ) and foot (2+ pedal pulses. ) Details: normal capillary refill and motor-sensory exam Details: light-touch normal Psych: Mental Status: mental status grossly normal Thought content: Yes Normal thought content present Discharge Plan Discharge Attending physician on discharge: Arnulfo Singleton Consulting providers: [facility] ; Elina Silva ; Arlette Juarez ; Piotr Linn ; Isa Morales ; Kathy Winchester ; Adrian Mixon Discharging Clinician: Kathy Winchester Patient Disposition: SNF Activity: may shower, no driving and follow weight bearing status Diet: as tolerated Wound Care Instructions: follow printed instructions Discharge Instructions: Orthopedic Recommendations Dr. Arnulfo Singleton [phone] Change dressing daily. Apply island dressing to the right lateral hip. Keep dry. No weight bearing of the right lower extremity. HIGH FALL RISK. Out of bed to chair. Pain control. Contact our office at [phone] with any questions or concerns regarding your hip. Follow up appt indicated below. Patient Instructions: Help Prevent Suicide (DC), Help Prevent Suicide (GEN), Help Prevent Suicide in Older Adults (DC), Depression in Older Adults (ED) Follow-up/Referrals: Arnulfo Singleton MD [Physician] - 11/15/20 10:00 am Discharge Medications: New hydrocodone-acetaminophen 7.5-325 mg Tablet 1 tablet PO Q3H PRN (Reason: Pain Rated 4-6) Qty: 56 RF: 0 heparin (porcine) 5,000 unit/mL Solution 5,000 units subcut Q12HR 14 Days Qty: 28 RF: 0 Continued docusate sodium 100 mg capsule 100 mg PO DAILY RF: 0 dorzol
== END 2020-11-01 15:36 ==
LOC: ANHSURGERY 16:18 → ANH2MED 16:18
PROVIDERS: Admitting Provider Orthopaedic Surgery; PCP Internal Medicine; Visit Provider Orthopaedic Surgery
PROC: (CPT 20680; principal; 2020-10-30 10:30)
DX: T84.84XA Pain due to internal orthopedic prosthetic devices, implants and grafts, initial encounter (principal); M70.61 Trochanteric bursitis, right hip; I10 Essential (primary) hypertension; K21.9 Gastro-esophageal reflux disease without esophagitis; F41.8 Other specified anxiety disorders; D64.9 Anemia, unspecified; Z87.891 Personal history of nicotine dependence; Z20.822 Contact with and (suspected) exposure to COVID-19
CPT/HCPCS: 20680; 36415; 80048; 85025; 87426; 97110; 97161; 97165; 97535; A9270; C9803; G0378; J0690; J1100; J1885; J2270; J2405; J2704; J3010; J7120

== ENCOUNTER 2021-05-14 12:48 | Observation (INO) | payer OTHER, SELFPAY ==
[2021-05-14] VITALS (10 sets, daily range): BP systolic 131–162; BP diastolic 60–89; PULSE 65–84; RESP 12–17; TEMP 36.2–36.6; O2SAT 95–99; BMI 16.0
--- NOTE | ~2021-05-14 | NM_ITS ---
EXAMINATION: NM sandeep stress w perfusion DATE: 05/16/2021 13:30 INDICATION: Chest pain. TECHNIQUE: Rest images were obtained following intravenous administration of 9.9 mCi Tc99m tetrofosmi n (Myoview). The patient was infused intravenously with Lexiscan (regadenoson). Then, 29.1 mCi Tc99m tetrofosmin (Myoview) was administered intravenously, and stress images were obtained. Data was recon structed into short axis and horizontal and vertical long axis SPECT images. Gated SPECT images were also obtained. COMPARISON: Chest CT 05/14/2021 FINDINGS: There is no definite reversible or fixed perfusion abnormality to suggest ischemia or infar ction. There is no segmental wall motion abnormality. Left ventricular ejection fraction measures > 70%. IMPRESSION: 1. No definite ischemia or infarct. 2. Normal left ventricular ejection fraction measuring >70%. Reviewed, dictated and finalized at location A.
--- NOTE | ~2021-05-14 | US_ITS ---
US abdomen limited DATE: 05/16/2021 18:47 INDICATION: Left upper quadrant evaluation of spleen TECHNIQUE: Real-time imaging of left upper quadrant with attention to spleen COMPARISON: None FINDINGS: There is limited visualization of the spleen due to anatomy and surrounding bowel gas. CT a bdomen would likely be much more productive for evaluation of the spleen IMPRESSION: Limited examination Reviewed, dictated and finalized at Location A. Reviewed, dictated and finalized at location A. IMPRESSION: Limited examination
--- NOTE | ~2021-05-14 | CT_ITS ---
EXAMINATION: CTA chest PE protocol DATE: 05/14/2021 14:26 INDICATION: cp,syncope TECHNIQUE: Computed tomography angiography (CTA) of the chest was performed with 100 mL Omnipaque-350 intravenous contrast timed to evaluate the pulmonary arteries. Coronal maximum intensity projection 3D-reconstructions were created by the technologist. The dose-length product (DLP) was 134.28 mGy-cm. Automated exposure control and iterative reconstruction technique were employed. COMPARISON: XR chest, same date. FINDINGS: Study quality: Adequate Pulmonary arteries: No pulmonary emboli detected. Central pulmonary artery dilation as can be seen wi th pulmonary arterial hypertension. Thoracic aorta: Mild atherosclerotic calcifications. Mild dilation, maximum AP diameter 30 mm. Lung parenchyma and airways: Senescent changes and scattered pleural parenchymal scarring. Thoracic inlet, axillae and chest wall: Unremarkable. Mediastinum: Surgical clips at the GE junction, otherwise normal. Heart and pericardium: Normal. Coronary artery calcifications: Mild. Pleura: Unremarkable. Upper abdomen: No significant finding. Bones: No acute osseous finding. Diffuse osteopenia. Mid thoracic vertebral body hemangioma. Superior endplate deformities at the thoracolumbar junction. IMPRESSION: No CT evidence of pulmonary embolus. Reviewed, dictated and finalized at location K.
--- NOTE | ~2021-05-14 | XR_ITS ---
EXAMINATION: XR chest 1V portable EXAM DATE: 05/14/2021 13:00 INDICATION: Chest pain. TECHNIQUE: Portable AP frontal chest x-ray was obtained. Comparison is made to prior examination from 11/01/2018. FINDINGS: Chronic hyperinflation. No confluent consolidation, pneumothorax or pleural effusion suspec lauren. Cardiomediastinal silhouette is normal. The bones are osteopenic. There are bony degenerative c hanges. IMPRESSION: 1. No acute cardiopulmonary findings. 2. Hyperinflation. Reviewed, dictated and finalized at location A.
--- NOTE | 2021-05-14 12:52 | ECG_ITS ---
Measurements Intervals [place] Rate: 85 P: 61 [place]: 163 QRS: 45 QRSD: 85 T: 59 QT: 376 QTc: 447 Interpretive Statements SINUS RHYTHM WITH OCCASIONAL VENTRICULAR PREMATURE COMPLEXES LEFT ATRIAL ENLARGEMENT [-0.15mV P WAVE IN V1/V2] MINIMAL ST DEPRESSION [0.025+ mV ST DEPRESSION] COMPARED TO ECG 10/31/2018 17:40:17 NO SIGNIFICANT CHANGE Electronically Signed On 05-14-2021 14:26:40 CDT by Joslyn Jennings M.D.
[2021-05-14 13:08] LABS: Basophils Percent Auto 0.6 % (0.2-1.2); Eosinophils Absolute Auto 0.1 K/mm3 (0-0.3); Eosinophils Percent Auto 1.4 % (0-4.4); Hematocrit 41.5 % (37.0-47.0); Hemoglobin 13.2 g/dL (12.0-15.0); Immature Granulocyte Absolute 0.01 K/mm3 (0.00-0.031); Immature Granulocyte Percent A 0.2 % (0-0.5); Lymphocytes Absolute Auto 1.71 K/mm3 (0.9-3.2); Lymphocytes Percent Auto 35.1 % (18.3-44.2); Mean Corpuscular HGB Conc 31.8 g/dl (32-36); Mean Corpuscular Hemoglobin 28.2 pg (26-34); Mean Corpuscular Volume 88.7 fl (80-100); Mean Platelet Volume 9.2 fl (7.4-10.4); Monocytes Absolute Auto 0.3 K/mm3 (0.1-0.6); Monocytes Percent Auto 5.3 % (2.6-8.5); Neutrophils Absolute Auto 2.8 K/mm3 (1.3-6.7); Neutrophils Percent Auto 57.4 % (45.5-73.1); Platelet Count Result 256 k/mm3 (150-375); Red Blood Count 4.68 M/mm3 (4.2-5.4); Red Cell Distribution Width 14.2 % (11.5-14.5); White Blood Count 4.9 K/mm3 (4.5-10.0)
[2021-05-14 13:18] LABS: INR 0.8
[2021-05-14 13:21] LABS: D Dimer 1.01 ug/mL (<0.48)
[2021-05-14] MEDS: ONDANSETRON INJ 4 MG/2 ML VIAL IV PUSH (13:25)
[2021-05-14] MEDS: PANTOPRAZOLE SODIUM IV 40 MG VIAL IV PUSH (13:26)
[2021-05-14] MEDS: MORPHINE SULFATE (*CRX) 2 MG/ML INJ IV PUSH (13:26)
[2021-05-14 13:34] LABS: Alanine Aminotransferase 10 U/L (4-35); Albumin Level 4.1 g/dL (3.5-5.1); Alkaline Phosphatase 131 U/L (38-126); Anion Gap 4 mmol/L (8-16); Aspartate Amino Transferase 24 U/L (14-36); Bilirubin,Total 0.3 mg/dL (0.2-1.3); Blood Urea Nitrogen 9 mg/dL (7-17); Carbon Dioxide 32 mmol/L (22-30); Chloride 102 mmol/L (98-107); Estimated Glomerular Filt Rate > 60; Glucose 124 mg/dL (65-110); Sodium 138 mmol/L (137-145)
[2021-05-14 13:39] LABS: NT Pro B Type Natriuretic Pept 317 pg/mL (5-100); Troponin I < 0.012 ng/mL (0.000-0.034)
--- NOTE | 2021-05-14 14:15 | PC.NURSE ---
Spoke to [facility] - Raquel WHITING and gave update on pt status. Requesting reports/updates be given at [phone]
--- NOTE | 2021-05-14 14:18 | PC.NURSE ---
Pt to CT scan via stretcher at this time.
--- NOTE | 2021-05-14 15:41 | ED.CHESTPAIN ---
HPI - Chest Pain General Chief Complaint: Chest Pain Stated Complaint: CP Source: patient Mode of arrival: EMS Limitations: no limitations History of Present Illness HPI narrative: 85-year-old with a history of anxiety disorder, depression, GERD here with complaints of midepigastric and retrosternal chest pain for last 3 days. Patient states that pain is sharp shooting in nature radiating into her left arm. As per the EMS patient passed out at the lunch stable. MD complaint: chest pain Onset (ago): day(s) (3) Timing of current episode: constant Pain location: substernal Pain radiation: left arm Severity: moderate Quality: sharp Relieving factors: nothing Exacerbating factors: nothing Risk Factors Coronary artery disease risk factors: none Related Data Home Medications Medication Instructions Recorded Confirmed acetaminophen 325 mg capsule 650 mg PO Q6H PRN 12/12/18 12/27/20 docusate sodium 100 mg capsule 100 mg PO DAILY 12/12/18 12/27/20 dorzolamide (PF) 2 % (PF) eye drops 1 drop RIGHT EYE BID 12/12/18 12/27/20 metoprolol tartrate 25 mg tablet 12.5 mg PO BID 12/12/18 12/27/20 omeprazole 20 mg capsule,delayed 20 mg PO DAILY 12/12/18 12/27/20 release ondansetron 4 mg disintegrating 4 mg PO PRN PRN 12/12/18 12/27/20 tablet sennosides 8.6 mg tablet 8.6 mg PO PRN PRN tablet 12/12/18 12/27/20 gabapentin 100 mg PO TID 09/20/20 12/27/20 hydrocodone-acetaminophen 1 tablet PO TID 09/20/20 12/27/20 lisinopril 10 mg PO DAILY 09/20/20 12/27/20 mirtazapine 7.5 mg PO HS 09/20/20 12/27/20 prednisolone acetate 1 drp RIGHT EYE BID 09/20/20 12/27/20 trazodone 100 mg PO HS 09/20/20 12/27/20 diclofenac sodium 1 ea TOPICAL DAILY 10/16/20 12/27/20 trazodone 50 mg PO HS 10/16/20 12/27/20 Allergies Allergy/AdvReac Type Severity Reaction Status Date / Time latex Allergy Unknown Hives / Verified 12/27/20 09:57 Red Face Penicillins AdvReac Unknown Rash Verified 12/27/20 09:57 MELINDA BANDAGE Allergy Mild HIVES Uncoded 12/27/20 09:57 Review of Systems Review of Systems: All systems reviewed & are unremarkable except as noted in HPI and below Constitutional: Constitutional: Reports no additional constitutional complaints Eyes: Eyes: Reports no additional eye complaints ENT: Reports system reviewed and no additional complaints, except as documented Cardiovascular: Cardiovascular: Reports as per HPI Respiratory: Respiratory: Reports no additional respiratory complaints Gastrointestinal: Gastrointestinal: Reports no additional gastrointestinal complaints Musculoskeletal: Musculoskeletal: Reports no additional musculoskeletal complaints Neurologic: Reports system reviewed and no additional complaints, except as documented Hematologic/Lymphatic: Hematologic/Lymphatic: Reports no additional hematologic/lymphatic complaints PMF Past Medical History Medical History Arthritis Arthritis Depression with anxiety Gastroesophageal reflux disease Glaucoma History of peptic ulcer Hypertension Legal blindness Rheumatic arteritis Surgical History Surgical History History of appendectomy History of arthroscopy of right knee History of bilateral cataract extraction History of cholecystectomy History of corneal transplant History of gastrectomy (1979) Secondary to peptic ulcers. History of hysterectomy History of repair of hip fracture (10/2018) IT Gamma brandi with subsequent hardware removal on 10/30/2020. Family History Family History Father Venous thromboembolism Mother Acute myocardial infarction Sibling Acute myocardial infarction Sibling Diabetes mellitus Other Arthritis Social History Social History Social History: [id number]: Marsha Zeng, friend. Code status: Do not resuscitate. Smoking
--- NOTE | 2021-05-14 16:10 | PM.IMHP ---
H&P: HPI History of Present Illness Date/Time: 05/14/21 16:10 Chief Complaint: Chest pain, syncope. Narrative: This is a very pleasant 85-year-old female with glaucoma, hypertension, and GERD with history of peptic ulcer disease who presented to the emergency department from [facility] for evaluation of chest pain and syncope. Over the last several days she has had intermittent retrosternal pains that she describes as sharp and shooting in nature, radiating to the left shoulder and arm. The episodes are brief and self-limiting. This afternoon she was sitting at the dining table waiting for her lunch to be served when the pain occurred quite suddenly and she has a brief syncopal episode shortly thereafter. She came to quite quickly in her blood pressure at that time was reportedly near 200 systolic. She was perhaps a bit nauseated with that but she denies associated sweats, shortness of breath, and vomiting. At the time my evaluation she is resting comfortably and has no specific complaints. She specifically denies current chest pain, epigastric pain, abdominal pain, belching, and bloating. She has no known history of cardiac disease. As above she does have a history of GERD and peptic ulcers status post gastrectomy decades ago. Review of Systems Review of Systems: Twelve systems were reviewed. No fever, chills, or sweats. She is legally blind from her glaucoma but can see shadows. No cold or flu symptoms. No sick contacts. She denies orthopnea, paroxysmal nocturnal dyspnea, and lower extremity edema. She has not been told that her stools were dark or bloody. No abdominal pain. No dysuria. No lower extremity edema. Except as documented, all other systems were reviewed and are negative. [facility] Past Medical History Medical History (Updated 05/14/21 @ 20:05 by Isa Morales PA-C) Arthritis Depression with anxiety Gastroesophageal reflux disease Glaucoma History of peptic ulcer Hypertension 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 Rheumatic arteritis Surgical History Surgical History History of appendectomy History of arthroscopy of right knee History of bilateral cataract extraction History of cholecystectomy History of corneal transplant History of gastrectomy (1979) Secondary to peptic ulcers. History of hysterectomy History of repair of hip fracture (10/2018) IT Gamma brandi with subsequent hardware removal on 10/30/2020. Family History Family History Father Venous thromboembolism Mother Acute myocardial infarction Sibling Acute myocardial infarction Sibling Diabetes mellitus Other Arthritis Social History Social History (Updated 05/14/21 @ 20:05 by Isa Morales PA-C) Social History: [id number]: Tucker and Marsha Azucena, friend. Code status: Do not resuscitate. Smoking packs per day: 1 Smoking cigarettes per day: 20.0 Years smoked: 25 Smoking pack-years: 25.00 Smoking status: Former smoker Tobacco type: cigarettes Second hand tobacco smoke exposure: Yes Smoking end date: 05/14/21 Alcohol intake: never Substance use: never Additional living arrangements comments: Resident at [facility]. Spiritual care concerns: No Meds Home Medications and Allergies Home Medications Medication Instructions Recorded Confirmed Type acetaminophen 325 mg capsule 650 mg PO Q6H PRN 12/12/18 05/14/21 History docusate sodium 100 mg capsule 100 mg PO DAILY 12/12/18 05/14/21 History dorzolamide (PF) 2 % (PF) eye drops 1 drop RIGHT EYE BID 12/12/18 05/14/21 History metoprolol tartrate 25 mg tablet 12.5 mg PO BID 12/12/18 05/14/21 History omeprazole 20 mg capsule,delayed 20 mg PO DAILY 12/12/18 05/14/21 History release ondansetron 4 mg disintegrating 4 mg PO PRN PRN 12/12/18 05/14/21 History tablet sennosides 8.6 mg tablet 8.6
[2021-05-14] MEDS: MORPHINE SULFATE (*CRX) 4 MG/ML INJ 2 MG IV PUSH (16:12)
[2021-05-14 16:19] LABS: Lipase 67 U/L (23-300)
[2021-05-14 16:21] LABS: Troponin I < 0.012 ng/mL (0.000-0.034)
[2021-05-14 16:35] LABS: SARS-CoV-2 RNA PCR Negative
[2021-05-14] MEDS: SODIUM CHLORIDE 0.9% IV 1,000 ML 75 ML IV CONT (18:29)
[2021-05-14 20:05] LABS: Troponin I < 0.012 ng/mL (0.000-0.034)
[2021-05-14] MEDS: HYDROcodone/acetaminophen (*CRX) 10-325 MG TABLET 1 TAB (21:12)
[2021-05-15] VITALS (17 sets, daily range): BP systolic 124–168; BP diastolic 57–80; PULSE 60–97; RESP 16–18; TEMP 35.9–36.7; O2SAT 95–96; BMI 16.0
[2021-05-15] MEDS: traZODone HCL 50 MG TABLET 100 MG PO ×2 (00:21→20:07)
[2021-05-15] MEDS: traZODone HCL 50 MG TABLET PO ×2 (00:21→20:07)
[2021-05-15] MEDS: MIRTAZAPINE 15 MG TABLET PO ×2 (00:22→20:06)
[2021-05-15] MEDS: DORZOLAMIDE/TIMOLOL OPHTH SOL 10 ML BOTTLE 1 DROP RIGHT EYE ×3 (00:22→20:07)
[2021-05-15 05:01] LABS: Hematocrit 36.3 % (37.0-47.0); Hemoglobin 11.4 g/dL (12.0-15.0); Mean Corpuscular HGB Conc 31.4 g/dl (32-36); Mean Corpuscular Hemoglobin 28.3 pg (26-34); Mean Corpuscular Volume 90.1 fl (80-100); Mean Platelet Volume 9.1 fl (7.4-10.4); Platelet Count Result 208 k/mm3 (150-375); Red Blood Count 4.03 M/mm3 (4.2-5.4); Red Cell Distribution Width 14.2 % (11.5-14.5); White Blood Count 3.6 K/mm3 (4.5-10.0)
[2021-05-15 05:16] LABS: Anion Gap 2 mmol/L (8-16); Blood Urea Nitrogen 7 mg/dL (7-17); Calcium 8.4 mg/dL (8.4-10.2); Carbon Dioxide 31 mmol/L (22-30); Chloride 105 mmol/L (98-107); Estimated CRCL calculation 43 ml/min; Estimated Glomerular Filt Rate > 60; Glucose 87 mg/dL (65-110); Magnesium 2.3 mg/dL (1.6-2.3); Potassium 4.1 mmol/L (3.4-5.0); Sodium 138 mmol/L (137-145)
--- NOTE | 2021-05-15 06:00 | ECG_ITS ---
Measurements Intervals [place] Rate: 74 P: -12 IA: 167 QRS: -14 QRSD: 88 T: -15 QT: 415 QTc: 461 Interpretive Statements SINUS RHYTHM COMPARED TO ECG 05/14/2021 12:47:20 NO SIGNIFICANT CHANGES Electronically Signed On 05-15-2021 18:52:53 CDT by Joslyn Jennings M.D.
[2021-05-15] MEDS: SUCRALFATE 1 GM TABLET PO ×3 (06:34→17:28)
[2021-05-15] MEDS: SODIUM CHLORIDE 0.9% IV 1,000 ML 75 ML IV CONT (06:34)
--- NOTE | 2021-05-15 06:45 | PC.NURSE ---
trazadone 150mg oral to be given to patient at bedtime. Called pharmacy to inquire about the dose and if the dose was appropriate for the patient. Pharmacy stated he checked with [facility] and this dose is what she takes at [facility] for chronic. Medication given as ordered for pain. No changes ion patients status noted.
[2021-05-15] MEDS: GABAPENTIN 100 MG CAPSULE PO ×3 (09:41→17:29)
[2021-05-15] MEDS: PANTOPRAZOLE SODIUM IV 40 MG VIAL IV PUSH (09:41)
[2021-05-15] MEDS: METOPROLOL TARTRATE 12.5 MG TABLET PO ×2 (09:41→17:30)
[2021-05-15] MEDS: prednisoLONE ACETATE 1% OPHTH 5 ML 1 DROP RIGHT EYE ×2 (09:41→17:30)
[2021-05-15] MEDS: lisinopriL 10 MG TABLET PO (09:42)
[2021-05-15] MEDS: DOCUSATE SODIUM 100 MG CAPSULE PO (09:42)
[2021-05-15] MEDS: ASPIRIN 81 MG CHEWABLE TABLET PO (09:43)
[2021-05-15] MEDS: HYDROcodone/acetaminophen (*CRX) 5-325 MG TABLET 1 TAB PO (09:44)
--- NOTE | 2021-05-15 10:38 | PM.IMPN ---
Progress Note: A&P Assessment and Plan (1) Syncope: Qualifiers: Syncope type: unspecified Qualified Code(s): R55 - Syncope and collapse Code(s): R55 - Syncope and collapse Status: Acute (2) Chest pain: Qualifiers: Chest pain type: unspecified Qualified Code(s): R07.9 - Chest pain, unspecified Code(s): R07.9 - Chest pain, unspecified Status: Acute (3) Gastroesophageal reflux disease: Code(s): K21.9 - Gastro-esophageal reflux disease without esophagitis Status: Acute (4) Hypertension: Code(s): I10 - Essential (primary) hypertension Status: Acute (5) Depression with anxiety: Code(s): F41.8 - Other specified anxiety disorders Status: Acute (6) Glaucoma: Code(s): H40.9 - Unspecified glaucoma Status: Chronic Additional Plan 05/14/21 Pain is somewhat atypical for cardiac pain and she has ruled out for acute coronary syndrome by serial troponins. EKG today showed minimal ST depression though comparable to previous tracings. She does have some mild reproducible tenderness on palpation thus this may be musculoskeletal in etiology. Symptoms do not seem compatible with GERD or active peptic ulcers though she has a history of such.Likely vasovagal syncope secondary to pain. Blood pressures were actually high right after the episode. She will be monitor on telemetry overnight to rule out cardiac dysrhythmia though that seems less likely.Blood pressures were reviewed and they have been running in the 150s to 160 systolic. Her antihypertensives will be reviewed and resumed as appropriate. 05/15/21 still w significant chest pain radiating to shoulder and arm c/s cardio may benefit from stress test at some point, defer to cardiology Toradol PRN x pain syncopal episode while sitting down associated w episode of extreme pain, no arrhythmias noted on tele anticipate dc tomorrow Subjective Date/time seen: 05/15/21 10:38 pt doing ok but complains of L sided chest pain that radiates to her L shoulder and down L arm. Her pain seems to be partially reproducible on PE but in light of her advanced age I have agreed to consult cardiology Exam Narrative: General: A thin, frail elderly female sitting up in bed in no distress. HEENT: Corneas are cloudy bilaterally. Sclerae anicteric. MMM Neck: Supple. No JVD. Respiratory: Lungs are clear to auscultation bilaterally. Cardiovascular: Regular rate and rhythm with S1-S2. Chest: She is mildly tender to palpation in the upper left anterior chest. Gastrointestinal: Abdomen is soft, flat, nontender, and nondistended with positive bowel sounds. Skin: Warm and dry. No rash or lesions on limited exam. Extremities: No cyanosis, clubbing, or edema. Radial and pedal pulses intact. Neurological: Alert. Cranial nerves 2-12 are grossly intact. No gross focal deficits to casual conversation. Psychiatric: Pleasant and cooperative with normal mood and affect. Objective Data Vital Signs Vital Signs: Vital Signs - 24 hr 05/14/21 12:38 05/14/21 13:24 05/14/21 13:26 Temperature 97.3 F L Pulse Rate 84 79 80 Respiratory Rate 16 15 Blood Pressure 158/89 H 156/87 H Pulse Oximetry 99 97 05/14/21 15:54 05/14/21 16:12 05/14/21 17:10 Temperature 97.8 F Pulse Rate 73 70 69 Respiratory Rate 14 17 12 Blood Pressure 148/74 H 154/77 H 162/82 H Pulse Oximetry 96 95 96 05/14/21 18:00 05/14/21 20:00 05/14/21 22:00 Temperature 97.6 F Pulse Rate 65 68 70 Respiratory Rate 14 Blood Pressure 131/60 Pulse Oximetry 98 05/14/21 23:54 05/15/21 00:00 05/15/21 02:00 Temperature 97.2 F L Pulse Rate 72 70 78 Respiratory Rate 16 Blood Pressure 157/86 H Pulse Oximetry 95 05/15/21 02:24 05/15/21 04:00 05/15/21 06:00 Temperature 97.3 F L Pulse Rate 96 66 Respiratory Rate 16 Blood Pressure 151/71 H Pulse Oximetry 96 95 05/15/21 08:00 Temperature 97.7 F Pulse Rate 69 R
[2021-05-15] MEDS: MORPHINE SULFATE (*CRX) 4 MG/ML INJ 2 MG IV PUSH (13:26)
--- NOTE | 2021-05-15 19:16 | PM.CNCAR ---
Assessment and Plan Assessment and plan (1) Chest pain: Qualifiers: Chest pain type: unspecified Qualified Code(s): R07.9 - Chest pain, unspecified Code(s): R07.9 - Chest pain, unspecified Status: Acute Assessment and Plan: Probably musculoskeletal as it is reproducible by palpation. She has been r/o for MD by troponin and EKG. EKG shows Sinus rhythm. Troponin neg x 3 sets. Echo shows EF 60-65%, mild LVH, grade I diastolic dysfunction (E/e' 13), mild LAE, mild AI/MR, trace TR/PI. To complete workup, obtain lexiscan myoview stress test in AM. (2) Syncope: Qualifiers: Syncope type: unspecified Qualified Code(s): R55 - Syncope and collapse Code(s): R55 - Syncope and collapse Status: Acute Assessment and Plan: Probably related to intense cp causing a vasovagal syncope. Telemetry is unremarkable thus far. (3) Hypertension: Code(s): I10 - Essential (primary) hypertension Status: Acute Assessment and Plan: Stable. Monitor. History of Present Illness History of Present Illness Consult date/time: 05/15/21 19:16 Reason for consult: CP and syncope. Patient is 85 yr old woman presented to ER by EMS for chest pain and passing out. [facility] and has a history of hypertension, anxiety/depression, GERD. Reports that she has been having intermittent just left of midline sharp chest pain for 5 days. It radiates to her jaw and left arm. The pain is reproducible by palpation of chest wall. Patient was having lunch and chest pain occurred and she passed out, slumping over on the table. She did not hurt herself. She has not been able to walk much since she fractured her hip 5 years ago, but can walk up to 20 feet using her walker. Denies sob, orthopnea, PND, edema, palpitations. Reason For Visit: Syncope/chest pain Review of Systems Review of Systems: All systems reviewed & are unremarkable except as noted in HPI and below Constitutional: Constitutional: Reports as per HPI, Denies chills and Denies fever(s) Cardiovascular: Cardiovascular: Reports as per HPI, Reports chest pain, Denies leg edema and Denies dyspnea Respiratory: Respiratory: Reports as per HPI and Denies dyspnea Gastrointestinal: Gastrointestinal: Reports as per HPI and Denies abdominal pain Genitourinary: Genitourinary: Reports as per HPI and Denies dysuria Musculoskeletal: Musculoskeletal: Reports as per HPI Neurologic: Reports as per HPI, Denies dizziness and Reports syncope [facility] Past Medical History Medical History (Updated 05/14/21 @ 20:05 by Isa Morales PA-C) Arthritis Depression with anxiety Gastroesophageal reflux disease Glaucoma History of peptic ulcer Hypertension 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 Rheumatic arteritis Surgical History Surgical History History of appendectomy History of arthroscopy of right knee History of bilateral cataract extraction History of cholecystectomy History of corneal transplant History of gastrectomy (1979) Secondary to peptic ulcers. History of hysterectomy History of repair of hip fracture (10/2018) IT Gamma brandi with subsequent hardware removal on 10/30/2020. Family History Family History Father Venous thromboembolism Mother Acute myocardial infarction Sibling Acute myocardial infarction Sibling Diabetes mellitus Other Arthritis Social History Social History (Updated 05/14/21 @ 20:05 by Isa Morales PA-C) Social History: [id number]: Tucker and Marsha Zeng, friend. Code status: Do not resuscitate. Smoking packs per day: 1 Smoking cigarettes per day: 20.0 Years smoked: 25 Smoking pack-years: 25.00 Smoking status: Former smoker Tobacco type: cigarettes Second hand tobacco smoke exposure: Yes Smoking end date: 05/14/21 Alcohol inta
--- NOTE | 2021-05-15 20:16 | ECHO_ITS ---
Patient Info Name: Gema Laughlin Age: 85 years : 1935 Gender: Female Ht: 63 in Wt: 87 lbs BSA: 1.31 m2 HR: 66 bpm BP: 151 / 71 mmHg Technical Quality: Good Exam Date: 05/15/2021 10:03 AM Exam Location: [facility] Exam Room: [facility] Patient Status: Inpatient Admit Date: 05/14/2021 Staff Ordering Physician: Isa Morales PA-C Branch Lead: Sun Hinkle RDCS Attending Provider: Elvis Dacosta M.A., MD Referring Physician: FAISAL VALLE REHAB ; Exam Type: CA echo doppler color flow Study Info Indications - syncope chest pain Complete two-dimensional, color flow and Doppler transthoracic echocardiogram is performed. Summary 1. Complete two-dimensional, color flow and Doppler transthoracic echocardiogram is performed. 2. Left ventricular chamber dimension is normal. 3. Ventricular septum is sigmoid shaped. No LVOT obstruction. 4. Left ventricular systolic function is normal, estimated at 60-65%. 5. There is mildly increased left ventricular wall thickness. 6. The left ventricular diastolic function is grade I diastolic dysfunction. 7. E/e' 13 is mildly elevated. 8. Left atrial chamber dimension is mildly enlarged. 9. There is mild aortic valve sclerosis. 10. There is mild aortic valve regurgitation. 11. There is mild mitral valve regurgitation. 12. There is trace tricuspid valve regurgitation. 13. No pulmonary hypertension, estimated pulmonary arterial systolic pressure is 37 mmHg. 14. There is trace pulmonic regurgitation. Left Ventricle E/e' 13 is mildly elevated. Ventricular septum is sigmoid shaped. No LVOT obstruction. Left ventricular chamber dimension is normal. Left ventricular systolic function is normal, estimated at 60-65%. There is mildly increased left ventricular wall thickness. The left ventricular diastolic function is grade I diastolic dysfunction. Right Ventricle Right ventricular chamber dimension is normal. Right ventricular systolic function is normal. Left Atria Left atrial chamber dimension is mildly enlarged. Right Atria Right atrial chamber dimension is normal. Aortic Valve The aortic valve is trileaflet. There is mild aortic valve sclerosis. There is no aortic valve stenosis. There is mild aortic valve regurgitation. Pulmonic Valve There is trace pulmonic regurgitation. Mitral Valve There is no mitral valve stenosis. There is mild mitral valve regurgitation. Tricuspid Valve There is trace tricuspid valve regurgitation. No pulmonary hypertension, estimated pulmonary arterial systolic pressure is 37 mmHg. Pericardium/Pleural There is no pericardial effusion. Inferior Vena Cava Normal inferior vena cava with >50% collapse upon inspiration consistent with normal right atrial pressure, 5 mmHg. Aorta The aortic root size at the sinus of Valsalva is normal. Left Ventricular Outflow Tract Name Value Normal LVOT 2D LVOT Diameter 2.0 cm LVOT Doppler LVOT Peak Gradient 6 mmHg LVOT Mean Gradient 3 mmHg LVOT VTI 26 cm
[2021-05-16] VITALS (14 sets, daily range): BP systolic 117–147; BP diastolic 56–88; PULSE 63–87; RESP 12–16; TEMP 36.1–36.9; O2SAT 94–100
[2021-05-16] MEDS: SUCRALFATE 1 GM TABLET PO ×2 (05:50→17:23)
--- NOTE | 2021-05-16 08:00 | EST_ITS ---
Patient Info Name: Gema Laughlin Age: 85 years : 1935 Gender: Female Ht: 62 in Wt: 87 lbs BSA: 1.30 m2 HR: 84 bpm BP: 143 / 95 mmHg Heart Rhythm: Sinus Rhythm Exam Date: 05/16/2021 12:02 PM Exam Location: [facility] Stress Patient Status: Outpatient Admit Date: 05/14/2021 Staff Ordering Physician: Kaleb Hoover DO Attending Provider: Elvis Dacosta M.A., MD Referring Physician: FAISAL VALLE REHAB ; Exercise Technologist: Evelina Lynch, DANE Exercise Physician: Kaleb Hoover DO Exam Type: CA stress sandeep w NM Study Info Indications R07.9 - Chest pain, unspecified A regadenoson stress test was performed. Summary 1. 1. Negative lexiscan stress test for ischemic ST changes by ECG criteria. 2. 2. Baseline hypertension. 3. 3. Nuclear scan to follow and will be reported separately. Please correlate with it. 4. 4. Patient informed of the above results. Protocol: Lexiscan Stress ECG Details Stage: REST Duration (min): 2 min : 6 sec HR (bpm): 79 SBP (mmHg): 170 DBP (mmHg): 91 Stage: REST Duration (min): 2 min : 29 sec HR (bpm): --- SBP (mmHg): 170 DBP (mmHg): 91 Stage: REST Duration (min): 2 min : 40 sec HR (bpm): 79 SBP (mmHg): 170 DBP (mmHg): 91 Stage: REST Duration (min): 3 min : 8 sec HR (bpm): 79 SBP (mmHg): 170 DBP (mmHg): 91 Stage: REST Duration (min): 9 min : 5 sec HR (bpm): 80 SBP (mmHg): 170 DBP (mmHg): 91 Stage: STAGE 1 Duration (min): 1 min : 0 sec HR (bpm): 90 SBP (mmHg): 187 DBP (mmHg): 99 Stage: RECOVERY Duration (min): 1 min : 0 sec HR (bpm): 114 SBP (mmHg): 187 DBP (mmHg): 99 Stage: RECOVERY Duration (min): 2 min : 0 sec HR (bpm): 118 SBP (mmHg): 187 DBP (mmHg): 99 Stage: RECOVERY Duration (min): 3 min : 0 sec HR (bpm): 114 SBP (mmHg): 171 DBP (mmHg): 94 Stage: RECOVERY Duration (min): 3 min : 55 sec HR (bpm): 110 SBP (mmHg): 171 DBP (mmHg): 94 Rest HR: 80 bpm Peak HR: 118 bpm Rest Sys BP: 170 mmHg Peak Sys BP: 187 mmHg Max Pred HR: 135 bpm % Max Pred HR: 87 % Target HR: 115 bpm Max RPP: 22,066 bpm*mmHg Termination Reason: Completed protocol Cardiac Symptoms: Baseline 08/17 chest pain Total Time: 1 min : 0 sec Rest [place] BP: 91 mmHg Peak [place] BP: 99 mmHg Total Dose: 0.4 mg Resting ECG Sinus rhythm. Stress ECG No ST changes. Arrhythmias None. Report Signatures
[2021-05-16] MEDS: KETOROLAC 15 MG/ML VIAL (*BKC) IV PUSH ×2 (08:03→15:32)
[2021-05-16] MEDS: PANTOPRAZOLE SODIUM IV 40 MG VIAL IV PUSH (08:05)
[2021-05-16] MEDS: DORZOLAMIDE/TIMOLOL OPHTH SOL 10 ML BOTTLE 1 DROP RIGHT EYE ×2 (08:05→20:38)
[2021-05-16] MEDS: GABAPENTIN 100 MG CAPSULE PO ×3 (08:05→17:23)
[2021-05-16] MEDS: prednisoLONE ACETATE 1% OPHTH 5 ML 1 DROP RIGHT EYE ×2 (08:05→17:23)
[2021-05-16] MEDS: DOCUSATE SODIUM 100 MG CAPSULE PO (08:05)
[2021-05-16] MEDS: ASPIRIN 81 MG CHEWABLE TABLET PO (08:05)
[2021-05-16] MEDS: lisinopriL 10 MG TABLET PO (08:05)
[2021-05-16] MEDS: oxyCODONE/ACETAMINOPHEN (*CRX) 5-325 MG TABLET 1 TABLET PO (10:14)
--- NOTE | 2021-05-16 12:41 | PM.PNCARD ---
Progress Note: A&P Assessment and Plan (1) Chest pain: Qualifiers: Chest pain type: unspecified Qualified Code(s): R07.9 - Chest pain, unspecified Code(s): R07.9 - Chest pain, unspecified Status: Acute Assessment and Plan: Probably musculoskeletal as it is reproducible by palpation. She has been r/o for DC by troponin and EKG. EKG shows Sinus rhythm. Troponin neg x 3 sets. Echo shows EF 60-65%, mild LVH, grade I diastolic dysfunction (E/e' 13), mild LAE, mild AI/MR, trace TR/PI. Had lexiscan myoview stress today. If unremarkable, no further cardiac workup is needed. (2) Syncope: Qualifiers: Syncope type: unspecified Qualified Code(s): R55 - Syncope and collapse Code(s): R55 - Syncope and collapse Status: Acute Assessment and Plan: Probably related to intense cp causing a vasovagal syncope. Telemetry is unremarkable thus far. (3) Hypertension: Code(s): I10 - Essential (primary) hypertension Status: Acute Assessment and Plan: Stable. Monitor. Subjective Date/time seen: 05/16/21 12:41 Reports severe chest pain that is reproducible by palpation. No sob, dizziness. Exam Const: General: cooperative, healthy appearing and comfortable Resp: Auscultation: clear to auscultation bilaterally, no crackles, no rales, no rhonchi and no wheezes Cardio: Jugular venous distension: no JVD Rate: regular rate Rhythm: regular rhythm Heart sounds: no murmurs Peripheral pulses: dorsalis pedis present GI: GI Palp: No abdominal tenderness and Yes Soft to palpation Neuro: General: oriented to person, oriented to place and oriented to time Extrem: Right lower extremity: no edema Left lower extremity: no edema Objective Data Vital Signs Vital Signs: Vital Signs - 24 hr 05/15/21 14:00 05/15/21 16:00 05/15/21 16:20 Temperature 96.7 F L Pulse Rate 67 63 65 Respiratory Rate 16 Blood Pressure 155/66 H Pulse Oximetry 96 05/15/21 18:00 05/15/21 20:00 05/15/21 22:00 Temperature 96.9 F L Pulse Rate 97 66 65 Respiratory Rate 18 Blood Pressure 168/77 H Pulse Oximetry 95 05/16/21 00:00 05/16/21 02:00 05/16/21 04:00 Temperature 97.5 F L 97.4 F L Pulse Rate 63 66 72 Respiratory Rate 14 16 Blood Pressure 117/56 L 121/61 Pulse Oximetry 97 95 05/16/21 05:55 05/16/21 08:00 05/16/21 08:31 Temperature 98.5 F Pulse Rate 83 87 Respiratory Rate 12 Blood Pressure 135/80 Pulse Oximetry 94 96 05/16/21 10:00 05/16/21 12:00 Temperature Pulse Rate 81 80 Respiratory Rate Blood Pressure Pulse Oximetry Intake/Output Intake/Output: Intake & Output 05/13/21 05/14/21 05/15/21 05/16/21 23:59 23:59 23:59 23:59 Intake Total 50 2380 120 Balance 50 2380 120 Meds/Results Medications: Active Medications Generic Name Dose Route Start Last Admin Trade Name Freq PRN Reason Stop Dose Admin Acetaminophen 650 mg 05/14/21 20:19 Acetaminophen 325 Mg Tablet PO Q6H PRN Mild Pain (1-3) OR Fever Hydrocodone Bitart/Acetaminophen 1 tab 05/14/21 20:19 05/15/21 09:44 Hydrocodone/Acetaminophen (*Crx) 5-325 Mg Tablet PO 1 tab Q6H PRN Administration MODERATE PAIN Aspirin 81 mg 05/15/21 08:00 05/16/21 08:05 Aspirin 81 Mg Chewable Tablet PO 81 mg DAILY@0800 MUSHTAQ Administration Docusate Sodium 100 mg 05/15/21 09:00 05/16/21 08:05 Docusate Sodium 100 Mg Capsule PO 100 mg DAILY MUSHTAQ Administration Dorzolamide/Timolol 1 drop 05/14/21 21:00 05/16/21 08:05 Dorzolamide/Timolol Ophth [place] 10 Ml Bottle RIGHT EYE 1 drop Q12HR MUSHTAQ Administration Gabapentin 100 mg 05/15/21 09:00 05/16/21 08:05 Gabapentin 100 Mg Capsule PO 100 mg TID MUSHTAQ Administration Ketorolac Tromethamine 15 mg 05/15/21 18:37 05/16/21 08:03 Ketorolac 15 Mg/Ml Vial (*Bkc) IV PUSH 15 mg Q6H PRN Administration Pain Rated 4-10 Lisinopril 10 mg 05/15/21 09:00
--- NOTE | 2021-05-16 16:30 | PM.IMPN ---
Progress Note: A&P Assessment and Plan (1) Syncope: Qualifiers: Syncope type: unspecified Qualified Code(s): R55 - Syncope and collapse Code(s): R55 - Syncope and collapse Status: Acute (2) Chest pain: Qualifiers: Chest pain type: unspecified Qualified Code(s): R07.9 - Chest pain, unspecified Code(s): R07.9 - Chest pain, unspecified Status: Acute (3) Gastroesophageal reflux disease: Code(s): K21.9 - Gastro-esophageal reflux disease without esophagitis Status: Acute (4) Hypertension: Code(s): I10 - Essential (primary) hypertension Status: Acute (5) Depression with anxiety: Code(s): F41.8 - Other specified anxiety disorders Status: Acute (6) Glaucoma: Code(s): H40.9 - Unspecified glaucoma Status: Chronic Additional Plan 05/14/21 Pain is somewhat atypical for cardiac pain and she has ruled out for acute coronary syndrome by serial troponins. EKG today showed minimal ST depression though comparable to previous tracings. She does have some mild reproducible tenderness on palpation thus this may be musculoskeletal in etiology. Symptoms do not seem compatible with GERD or active peptic ulcers though she has a history of such.Likely vasovagal syncope secondary to pain. Blood pressures were actually high right after the episode. She will be monitor on telemetry overnight to rule out cardiac dysrhythmia though that seems less likely.Blood pressures were reviewed and they have been running in the 150s to 160 systolic. Her antihypertensives will be reviewed and resumed as appropriate. 05/15/21 still w significant chest pain radiating to shoulder and arm c/s cardio may benefit from stress test at some point, defer to cardiology Toradol PRN x pain syncopal episode while sitting down associated w episode of extreme pain, no arrhythmias noted on tele anticipate dc tomorrow 05/16/21 pt continues to have significant pain between 6-7 and 7-8 rib spaces very consistent w costochondritis NSAID lidocaine patch tylenol heat pad PRN for comfort LUQ US anticipate dc tomorrow after pain controlled Subjective Date/time seen: 05/16/21 16:30 pt continues to have significant pain between 6-7 and 7-8 rib spaces very consistent w costochondritis pt reporting 10/10 pain still radiating to shoulder and neck, her stress test is negative and I have agreed to eval her spleen in light of her referred pain. Exam Narrative: General: A thin, frail elderly female lying in bed in no distress. HEENT: Corneas are cloudy bilaterally. Sclerae anicteric. MMM Neck: Supple. No JVD. Respiratory: Lungs are clear to auscultation bilaterally. Cardiovascular: Regular rate and rhythm with S1-S2. Chest: TTP between 6-7 and 7-8 ribs Gastrointestinal: Abdomen is soft, flat, nontender, and nondistended with positive bowel sounds. Skin: Warm and dry. No rash or lesions on limited exam. Extremities: No cyanosis, clubbing, or edema. Radial and pedal pulses intact. Neurological: Alert. Cranial nerves 2-12 are grossly intact. No gross focal deficits to casual conversation. Psychiatric: Pleasant and cooperative with normal mood and affect. Objective Data Vital Signs Vital Signs: Vital Signs - 24 hr 05/15/21 18:00 05/15/21 20:00 05/15/21 22:00 Temperature 96.9 F L Pulse Rate 97 66 65 Respiratory Rate 18 Blood Pressure 168/77 H Pulse Oximetry 95 05/16/21 00:00 05/16/21 02:00 05/16/21 04:00 Temperature 97.5 F L 97.4 F L Pulse Rate 63 66 72 Respiratory Rate 14 16 Blood Pressure 117/56 L 121/61 Pulse Oximetry 97 95 05/16/21 05:55 05/16/21 08:00 05/16/21 08:31 Temperature 98.5 F Pulse Rate 83 87 Respiratory Rate 12 Blood Pressure 135/80 Pulse Oximetry 94 96 05/16/21 10:00 05/16/21 12:00 05/16/21 14:00 Temperature Pulse Rate 81 80 79 Respiratory Rate Blood Pressure Pulse Oximetry Intake/Output Intake/Ou
[2021-05-16] MEDS: METOPROLOL TARTRATE 12.5 MG TABLET PO (17:23)
[2021-05-16] MEDS: LIDOCAINE 5% PATCH 1 PATCH TRANSDERM (17:23)
[2021-05-16] MEDS: MIRTAZAPINE 15 MG TABLET PO (20:38)
[2021-05-16] MEDS: traZODone HCL 50 MG TABLET 100 MG PO (20:39)
[2021-05-16] MEDS: traZODone HCL 50 MG TABLET PO (20:39)
[2021-05-17] VITALS (15 sets, daily range): BP systolic 129–175; BP diastolic 62–89; PULSE 64–120; RESP 14–20; TEMP 36.2–36.9; O2SAT 95–100
[2021-05-17 04:54] LABS: Basophils Percent Auto 0.8 % (0.2-1.2); Eosinophils Absolute Auto 0.2 K/mm3 (0-0.3); Eosinophils Percent Auto 4.9 % (0-4.4); Hemoglobin 12.2 g/dL (12.0-15.0); Immature Granulocyte Absolute 0.01 K/mm3 (0.00-0.031); Immature Granulocyte Percent A 0.3 % (0-0.5); Lymphocytes Absolute Auto 1.03 K/mm3 (0.9-3.2); Lymphocytes Percent Auto 28.1 % (18.3-44.2); Mean Corpuscular HGB Conc 32.1 g/dl (32-36); Mean Corpuscular Hemoglobin 27.9 pg (26-34); Mean Corpuscular Volume 86.8 fl (80-100); Mean Platelet Volume 9.3 fl (7.4-10.4); Monocytes Absolute Auto 0.3 K/mm3 (0.1-0.6); Monocytes Percent Auto 7.4 % (2.6-8.5); Neutrophils Absolute Auto 2.1 K/mm3 (1.3-6.7); Neutrophils Percent Auto 58.5 % (45.5-73.1); Platelet Count Result 221 k/mm3 (150-375); Red Blood Count 4.38 M/mm3 (4.2-5.4); Red Cell Distribution Width 13.7 % (11.5-14.5); White Blood Count 3.7 K/mm3 (4.5-10.0)
[2021-05-17 05:09] LABS: Anion Gap 2 mmol/L (8-16); Blood Urea Nitrogen 15 mg/dL (7-17); Carbon Dioxide 34 mmol/L (22-30); Chloride 101 mmol/L (98-107); Estimated CRCL calculation 34 ml/min; Estimated Glomerular Filt Rate > 60; Glucose 92 mg/dL (65-110); Potassium 4.8 mmol/L (3.4-5.0); Sodium 137 mmol/L (137-145)
[2021-05-17] MEDS: SUCRALFATE 1 GM TABLET PO ×2 (06:04→11:48)
[2021-05-17] MEDS: IBUPROFEN 600 MG TABLET PO (09:01)
[2021-05-17] MEDS: GABAPENTIN 100 MG CAPSULE PO (09:03)
[2021-05-17] MEDS: DOCUSATE SODIUM 100 MG CAPSULE PO (09:03)
[2021-05-17] MEDS: METOPROLOL TARTRATE 12.5 MG TABLET PO (09:04)
[2021-05-17] MEDS: lisinopriL 10 MG TABLET PO (09:05)
[2021-05-17] MEDS: PANTOPRAZOLE SODIUM IV 40 MG VIAL IV PUSH (09:05)
[2021-05-17] MEDS: LIDOCAINE 5% PATCH 1 PATCH TRANSDERM (09:06)
[2021-05-17] MEDS: prednisoLONE ACETATE 1% OPHTH 5 ML 1 DROP RIGHT EYE (09:06)
[2021-05-17] MEDS: DORZOLAMIDE/TIMOLOL OPHTH SOL 10 ML BOTTLE 1 DROP RIGHT EYE (09:06)
[2021-05-17] MEDS: ASPIRIN 81 MG CHEWABLE TABLET PO (09:06)
--- NOTE | 2021-05-17 13:43 | PM.DS ---
DS: Admitting Diagnosis Discharge Date 05/17/21 Admitting Diagnosis (1) Chest pain: Qualifiers: Chest pain type: unspecified Qualified Code(s): R07.9 - Chest pain, unspecified Code(s): (2) Syncope: Qualifiers: Syncope type: unspecified Qualified Code(s): R55 - Syncope and collapse Code(s): R55 - Syncope and collapse Status: Acute (3) Hypertension: Code(s): I10 - Essential (primary) hypertension Status: Acute (4) Gastroesophageal reflux disease: Code(s): K21.9 - Gastro-esophageal reflux disease without esophagitis Status: Acute (5) Glaucoma: Code(s): H40.9 - Unspecified glaucoma Status: Chronic DS: Discharge Diagnosis Discharge Diagnosis (1) Vaso-vagal reaction: Code(s): R55 - Syncope and collapse Status: Acute (2) Syncope: Qualifiers: Syncope type: unspecified Qualified Code(s): R55 - Syncope and collapse Code(s): R55 - Syncope and collapse Status: Acute (3) Chest pain: Qualifiers: Chest pain type: unspecified Qualified Code(s): R07.9 - Chest pain, unspecified Code(s): R07.9 - Chest pain, unspecified Status: Acute (4) Costochondritis, acute: Code(s): M94.0 - Chondrocostal junction syndrome [Tietze] Status: Acute (5) Gastroesophageal reflux disease: Code(s): K21.9 - Gastro-esophageal reflux disease without esophagitis Status: Acute (6) Hypertension: Code(s): I10 - Essential (primary) hypertension Status: Acute (7) Depression with anxiety: Code(s): F41.8 - Other specified anxiety disorders Status: Acute (8) Glaucoma: Code(s): H40.9 - Unspecified glaucoma Status: Chronic DS: Summary Hospital Course Reason for hospitalization: Chest pain, syncope. Hospital Course: 85-year-old female resident of local [facility] was brought to emergency room with chief complaint of chest pain. Additionally there was a report of associated syncopal or near syncopal event. Patient reports that she had an episode of excruciating pain just before the nursing pain is over left anterior chest wall and radiates to her neck shoulder and down her left arm. It is reducible on palpation. She was seen by Cardiology in light of her advanced age syncopal/near syncopal event, and radiating chest pain. Telemetry monitoring was without acute events and patient was in normal sinus rhythm. She went stress test that was with ischemic findings. Patient's pain resolved with administration of Advil and use lidocaine patches. She subsequently discharged back to her nursing facility in stable condition with indications of follow-up with her primary care physician. Status at Discharge Overall status at discharge: patient is back to baseline Time Spent with Patient Time attestation: Total time spent providing and/or coordinating discharge services: Time spent: Greater than 30 minutes Exam Const: General: comfortable and no acute distress Limitations: altered mental status HENMT: General nose exam: Normal nares present Mouth: Yes moist mucous membranes Neck: Neck: supple and no JVD Resp: Auscultation: clear to auscultation bilaterally Cardio: Rate: regular rate Rhythm: regular rhythm Other: Anterior chest wall with tenderness of palpation between ribs 7-8 and 8-9 improved from previous day's exam GI: Inspection: non-distended GI Palp: Yes Soft to palpation Skin: General skin exam: normal color and no erythema Neuro: Motor exam (neuro): 5/5 motor strength present throughout Sensory Exam: normal sensation Extrem: General: normal to inspection and normal exam except as noted Psych: Appearance: grossly normal Mental Status: mental status grossly normal Affect: normal affect and No Sad affect present Attitude: not belligerent DS: Data Data Completed and Pending Labs on day of discharge: Labs from last 24 hour
== END 2021-05-17 18:29 ==
LOC: ANHED 15:56 → ANHIMU 17:13
PROVIDERS: Physician Assistant; Admitting Provider Internal Medicine; Emergency Provider Family Medicine; Visit Provider Hospitalist
DX: R55 Syncope and collapse (principal); R07.9 Chest pain, unspecified; M94.0 Chondrocostal junction syndrome [Tietze]; K21.9 Gastro-esophageal reflux disease without esophagitis; F41.8 Other specified anxiety disorders; I10 Essential (primary) hypertension; I35.1 Nonrheumatic aortic (valve) insufficiency; I34.0 Nonrheumatic mitral (valve) insufficiency; H40.9 Unspecified glaucoma; Z87.11 Personal history of peptic ulcer disease; Z90.3 Acquired absence of stomach [part of]; Z87.891 Personal history of nicotine dependence; Z79.01 Long term (current) use of anticoagulants; Z20.822 Contact with and (suspected) exposure to COVID-19
CPT/HCPCS: 36415; 71045; 71275; 76705; 78452; 80048; 80053; 83690; 83735; 83880; 84443; 84484; 85025; 85027; 85380; 85610; 93005; 93017; 93306; 96361; 96374; 96375; 96376; 99285; A9270; A9502; C9113; C9803; G0378; J1885; J2270; J2405; J2785; J7030; Q9967; U0003; U0005

== ENCOUNTER 2021-06-01 22:14 | Emergency (ER) | payer OTHER, SELFPAY ==
[2021-06-01 22:15] VITALS: BP 206/92; PULSE 76; RESP 16; TEMP 36.2; O2SAT 97
[2021-06-01 23:01] VITALS: BP 175/91; O2SAT 97
--- NOTE | 2021-06-01 23:08 | PC.NURSE ---
at 2149 - called [facility] to request transport. ETA [id number] - 0100 at 2153 called [facility] to request transport. [facility] Declined at 2255
--- NOTE | 2021-06-01 23:19 | ED.FEMALEGU ---
HPI - Female Genitourinary General Chief complaint: Urogenital-Female Stated complaint: UTI History of Present Illness HPI Narrative: Patient is an 85-year-old female who presents ER with burning around her vagina. Ongoing for 3 days. Worse with urination. Feels like UTI. Denies fevers or chills or sweats. No abdominal pain or nausea or vomiting. She is not currently on antibiotics. Review of Systems Review of Systems: All systems reviewed & are unremarkable except as noted in HPI and below Constitutional: Constitutional: Denies chills Comments: No fevers ENT: Denies nasal congestion and Denies sore throat Respiratory: Respiratory: Denies cough, Denies dyspnea and Denies wheezing Gastrointestinal: Gastrointestinal: Denies abdominal pain, Denies diarrhea, Denies nausea and Denies vomiting Genitourinary: Genitourinary: Denies nocturia, Reports dysuria and Denies flank pain PMFSH Past Medical History Medical History (Updated 06/02/21 @ 01:00 by Samm Jones MD) Anxiety Blind GERD (gastroesophageal reflux disease) Hiatal hernia Hypertension Insomnia Polyneuropathy, unspecified Social History Social History (Updated 06/01/21 @ 23:24 by Samm Jones MD) Social History: Patient is a DNR. She resides at [facility]. Exam Narrative: GENERAL: Well-appearing, underweight, and in no acute distress. HEAD: Normocephalic, atraumatic. EYES: Sclerosis of cornea on the left, eyes. Trophic. ENT: Mucous membranes moist. CHEST: Clear to auscultation. No respiratory distress. HEART: Regular rate and rhythm. Normal peripheral pulses. ABDOMEN: Soft, nontender, nondistended. EXTREMITIES: Normal range of motion. No edema. NEURO: Alert and oriented x3. PSYCH: Normal mood and affect. Course Course Emergency Course: Patient with evidence of UTI. Ceftriaxone administered in the ER. Patient's blood pressure was elevated upon arrival but has normalized while in the room. Vital Signs Vital signs: Vital Signs Temperature 97.1 F L 06/01/21 22:15 Pulse Rate 76 06/01/21 22:15 Respiratory Rate 16 06/01/21 22:15 Blood Pressure 206/92 H 06/01/21 22:15 Pulse Oximetry 97 06/01/21 22:15 Temperature 97.1 F L 06/01/21 22:15 Pulse Rate 76 04/24/22 22:15 Respiratory Rate 16 06/01/21 22:15 Blood Pressure 206/92 H 06/01/21 22:15 Pulse Oximetry 97 06/01/21 22:15 MDM - Female Genitourinary Lab Data Result diagrams: 06/01/21 23:17 06/01/21 23:17 Labs: Lab Results 06/01/21 06/01/21 06/01/21 Range/Units 23:17 23:17 23:55 WBC 6.6 (4.5-10.0) K/mm3 RBC 4.67 (4.2-5.4) M/mm3 Hgb 13.0 (12.0-15.0) g/dL Hct 41.8 (37.0-47.0) % MCV 89.5 (80-100) fl MCH 27.8 (26-34) pg MCHC 31.1 L (32-36) g/dl RDW 14.1 (11.5-14.5) % Plt Count 267 (150-375) k/mm3 MPV 8.6 (7.4-10.4) fl Immature Gran % (Auto) 0.3 (0-0.5) % Neut % (Auto) 74.4 H (45.5-73.1) % Lymph % (Auto) 18.0 L (18.3-44.2) % [place] % (Auto) 5.1 (2.6-8.5) % Eos % (Auto) 1.7 (0-4.4) % Baso % (Auto) 0.5 (0.2-1.2) % Lymph # (Auto) 1.19 (0.9-3.2) K/mm3 [place] # (Auto) 0.3 (0.1-0.6) K/mm3 Eos # (Auto) 0.1 (0-0.3) K/mm3 Baso # (Auto) 0.0 (0.0-0.1) K/mm3 Abs Immat Gran (auto) 0.02 (0.00-0.031) K/mm3 Absolute Neuts (auto) 4.9 (1.3-6.7) K/mm3 Absolute Nucleated RBC 0.0 (0.0-0.012) K/mm3 Nucleated RBC % 0.0 (0.0-0.2) % Sodium 138 (137-145) mmol/L Potassium 4.2 (3.4-5.0) mmol/L Chloride 102 (98-107) mmol/L Carbon Dioxide 34 H (22-30) mmol/L Anion Gap 2 L (8-16) mmol/L BUN 8 (7-17) mg/dL Creatinine 0.60 L (0.7-1.0) mg/dL Estim Creat Clear Calc 42 ml/min Estimated GFR > 60 (59 - ) Glucose 112 H (65-110) mg/dL Calcium 8.8 (8.4-10.2) mg/dL Urine Color Yellow (Yellow) Urine Appearance Cloudy H (Clear) Urine pH 7.0 (5.0-9.0) U
[2021-06-01 23:22] LABS: Basophils Percent Auto 0.5 % (0.2-1.2); Eosinophils Absolute Auto 0.1 K/mm3 (0-0.3); Eosinophils Percent Auto 1.7 % (0-4.4); Hematocrit 41.8 % (37.0-47.0); Immature Granulocyte Absolute 0.02 K/mm3 (0.00-0.031); Immature Granulocyte Percent A 0.3 % (0-0.5); Lymphocytes Absolute Auto 1.19 K/mm3 (0.9-3.2); Mean Corpuscular HGB Conc 31.1 g/dl (32-36); Mean Corpuscular Hemoglobin 27.8 pg (26-34); Mean Corpuscular Volume 89.5 fl (80-100); Mean Platelet Volume 8.6 fl (7.4-10.4); Monocytes Absolute Auto 0.3 K/mm3 (0.1-0.6); Monocytes Percent Auto 5.1 % (2.6-8.5); Neutrophils Absolute Auto 4.9 K/mm3 (1.3-6.7); Neutrophils Percent Auto 74.4 % (45.5-73.1); Platelet Count Result 267 k/mm3 (150-375); Red Blood Count 4.67 M/mm3 (4.2-5.4); Red Cell Distribution Width 14.1 % (11.5-14.5); White Blood Count 6.6 K/mm3 (4.5-10.0)
[2021-06-01 23:33] LABS: Anion Gap 2 mmol/L (8-16); Blood Urea Nitrogen 8 mg/dL (7-17); Calcium 8.8 mg/dL (8.4-10.2); Carbon Dioxide 34 mmol/L (22-30); Chloride 102 mmol/L (98-107); Estimated CRCL calculation 42 ml/min; Estimated Glomerular Filt Rate > 60; Glucose 112 mg/dL (65-110); Potassium 4.2 mmol/L (3.4-5.0); Sodium 138 mmol/L (137-145)
[2021-06-02 00:14] LABS: Add Urine Microscopic? YES; Appearance Urine Cloudy (Clear); Bacteria Urine Trace /hpf; Bilirubin Urine Negative (Negative); Blood Urine 2+ (Negative); Color Urine Yellow (Yellow); Glucose Urine UA Negative (Negative); Ketones Urine Negative (Negative); Leukocyte Esterase Ur 3+ LEU/UL (Negative); Mucus Urine Rare /lpf; Nitrate Urine Negative (Negative); Protein Urine 1+ mg/dL (Negative); Specific Grav Ur 1.005 (1.001-1.035); Squamous Epithelial Cell Urine Occasional /hpf (Few); Urobilinogen Urine Negative mg/dL (<2.0); WBC Urine >75 /hpf
[2021-06-02 01:00] VITALS: BP 172/89; PULSE 93; RESP 16; O2SAT 96
[2021-06-02 02:40] VITALS: BP 157/87; PULSE 75; RESP 16; O2SAT 97
[2021-06-02] MEDS: PHENAZOPYRIDINE HCL 100 MG TABLET 200 MG PO (02:58)
[2021-06-02 04:01] VITALS: BP 169/89; O2SAT 95
== END 2021-06-02 04:15 ==
PROVIDERS: Emergency Provider Emergency Medicine
DX: N39.0 Urinary tract infection, site not specified (principal); I10 Essential (primary) hypertension; G62.9 Polyneuropathy, unspecified; H54.7 Unspecified visual loss; Z66 Do not resuscitate
CPT/HCPCS: 36415; 51701; 80048; 81001; 85025; 87086; 87088; 87147; 96365; 99284; A9270; J0696

== ENCOUNTER 2021-08-25 22:04 | Inpatient (IN) | payer OTHER, SELFPAY ==
--- NOTE | ~2021-08-25 | XR_ITS ---
EXAMINATION: XR chest 1V Exam Date/Time: 08/25/2021 22:45 CDT HISTORY: pill stuck in throat, HX HTN Comparison: 05/14/2021. RESULT: Lines, tubes, and devices: Surgical clips over the GE junction. Lungs and pleura: Senescent and possible emphysematous change, otherwise clear. Cardiomediastinal silhouette: Stable cardiomediastinal silhouette. Other: No acute osseous or upper abdominal finding. IMPRESSION: No acute cardiopulmonary process. Reviewed, dictated and finalized at location K.
--- NOTE | ~2021-08-25 | XR_ITS ---
EXAM: XR hip LT 2V w AP pelvis DATE: 08/25/2021 22:56 HISTORY: pain status post fall FROM WHEELCHAIR, LT HIP PAIN . COMPARISON: 11/15/2020, 12/12/2018. FINDINGS: Severe osteopenia. No acute fracture or dislocation. No lytic or blastic lesion. Joint spa bart are maintained. No erosion or periosteal change. Heterotopic bone formation in the right hip. Sof t tissues within normal limits. IMPRESSION: No acute osseous finding in the left hip. Reviewed, dictated and finalized at location K.
--- NOTE | ~2021-08-25 | XR_ITS ---
XR hip LT min 2V DATE: 08/29/2021 09:02 INDICATION: Fall. Increased left hip lateral pain TECHNIQUE: AP and lateral views COMPARISON: 08/26/2021 CT left hip 08/25/2021 left hip FINDINGS: Subtle nondisplaced lateral left femoral neck fracture remains nondisplaced, unchanged in p osition since 08/25/2021 and 08/26/2021. Diffuse osteopenia. No hip dislocation. Normal alignment at the pubic symphysis and left sacroiliac joint. IMPRESSION: Subtle nondisplaced left lateral femoral neck fracture remains nondisplaced, unchanged in position since 08/25/2021 and 08/26/2021 Osteopenia Reviewed, dictated and finalized at location B. IMPRESSION: Subtle nondisplaced left lateral femoral neck fracture remains nond isplaced, unchanged in position since 08/25/2021 and 08/26/2021 Osteopenia
--- NOTE | ~2021-08-25 | CT_ITS ---
EXAMINATION: CT hip LT wo con DATE: 08/26/2021 01:06 INDICATION: Left hip pain post fall TECHNIQUE: High resolution computed tomography (CT) of the left hip was performed without intravenous contrast. Additional sagittal and coronal reconstructions were performed. Automated exposure control and iterative reconstruction technique were employed. The dose-length product was 127.98 mGy-cm. COMPARISON: Radiograph dated 08/25/2021 FINDINGS: Alignment is normal. There is a nondisplaced fracture with cortical step-off extending along the guillermo ex at the junction of the cephalad aspect of the femoral neck and the base of the greater trochanter. The a fracture line is unable to be definitively followed with indeterminate orientation and extensi on of the fracture. The associated intramedullary edema which remain confined to the greater trochant er. Mild osteoarthritis at the left hip. No other fractures identified. Mild disc height loss with va cuum phenomena at the partially visualized L5-S1 disc space. The uterus is not identified and has lik kamilla been surgically resected. Multiple diverticula along the visualized sigmoid colon. No pathologica lly enlarged left pelvic or inguinal lymphadenopathy. IMPRESSION: 1. Nondisplaced fracture at the superior junction of the left femoral neck and greater trochanter. Un clear whether the fracture line extends medially to compromise the weightbearing axis of the femur wi th the secondary intramedullary marrow edema pattern to remain confined to the greater trochanter. Co nsider MRI for further evaluation. Reviewed, dictated and finalized at location A. IMPRESSION: 1. Nondisplaced fracture at the superior junction of the left femoral neck and greater trochanter. Unclear whether the fracture line extends medially to compr omise the weightbearing axis of the femur with the secondary intramedullary mar row edema pattern to remain confined to the greater trochanter. Consider MRI fo r further evaluation.
--- NOTE | ~2021-08-25 | CT_ITS ---
EXAMINATION: CT brain wo con DATE: 08/25/2021 23:39 INDICATION: Fall. Loss of consciousness. TECHNIQUE: Computed tomography (CT) of the head was performed without intravenous contrast. The mA wa s adjusted according to patient size. Iterative reconstruction technique was employed. Exam dose: 60 5.33 mGy-cm total exam DLP. COMPARISON: 10/25/2017 FINDINGS: Prominent left vertebral artery and bilateral carotid siphon internal carotid artery calcif ications. There is nonspecific diminished attenuation cerebral white matter, likely due to chronic sm all vessel ischemic changes. No intracranial mass lesion or hemorrhage or cerebrovascular accident. There is a small chronic infar ct of the left cerebellar hemisphere. Moderate cerebral and mild cerebellar atrophy. No subdural or epidural hematoma. No fracture or bone destruction of the cranial vault. The mastoid air cells and included paranasal si nuses are normally developed and aerated. Chronic high density material within the left orbital globe and postsurgical change of right orbit, u nchanged since 10/25/2017. No midline shift or mass effect. IMPRESSION: Cerebral atherosclerosis and chronic small vessel ischemic changes of the white matter Small chronic left cerebellar hemispheric infarct No significant change since 10/25/2017 Reviewed, dictated and finalized at Location A. Reviewed, dictated and finalized at location B.
--- NOTE | ~2021-08-25 | CT_ITS ---
EXAMINATION: CT cervical spine wo con DATE: 08/25/2021 23:39 INDICATION: Fall. Head and neck injury. Loss of consciousness. TECHNIQUE: Computed tomography (CT) of the cervical spine was performed without intravenous contrast. Automated exposure control and iterative reconstruction technique were employed. Exam dose: 91.46 m Gy-cm total exam DLP. COMPARISON: 12/23/2009 CT cervical spine FINDINGS: C1 and C2 are normally aligned and the odontoid process is intact. No fracture or dislocati on or locked facet or prevertebral soft tissue swelling.. There is moderate to moderately severe degenerative disc disease from C3-4 through C6-7, most pronoun toña at C5-6, with prominent uncovertebral joint spurring at this level. There is degenerative change of the apophyseal joints throughout the cervical spine. IMPRESSION: Cervical spondylosis Reviewed, dictated and finalized at Location A. Reviewed, dictated and finalized at location B. IMPRESSION: Cervical spondylosis
[2021-08-25 22:05] VITALS: BP 161/96; PULSE 118; RESP 16; TEMP 36.4; O2SAT 95
--- NOTE | 2021-08-25 22:30 | ECG_ITS ---
Measurements Intervals [place] Rate: 94 P: 74 MI: 169 QRS: 76 QRSD: 92 T: 72 QT: 356 QTc: 447 Interpretive Statements SINUS RHYTHM POSSIBLE RIGHT ATRIAL ENLARGEMENT POSSIBLE LEFT ATRIAL ENLARGEMENT MINIMAL Q WAVES- ANTEROLAT/INF LEADS BASELINE ARTIFACT- AVR, AVL, AVF, V5 BORDERLINE ECG Electronically Signed On 08-26-2021 7:53:19 CDT by Kaleb Hoover D.O.
[2021-08-25 22:53] LABS: Basophils Percent Auto 0.4 % (0.2-1.2); Eosinophils Absolute Auto 0.1 K/mm3 (0-0.3); Eosinophils Percent Auto 2.3 % (0-4.4); Hematocrit 40.8 % (37.0-47.0); Hemoglobin 12.6 g/dL (12.0-15.0); Immature Granulocyte Absolute 0.01 K/mm3 (0.00-0.031); Immature Granulocyte Percent A 0.2 % (0-0.5); Lymphocytes Absolute Auto 0.82 K/mm3 (0.9-3.2); Lymphocytes Percent Auto 17.2 % (18.3-44.2); Mean Corpuscular HGB Conc 30.9 g/dl (32-36); Mean Corpuscular Hemoglobin 26.7 pg (26-34); Mean Corpuscular Volume 86.4 fl (80-100); Mean Platelet Volume 9.4 fl (7.4-10.4); Monocytes Absolute Auto 0.3 K/mm3 (0.1-0.6); Monocytes Percent Auto 6.7 % (2.6-8.5); Neutrophils Absolute Auto 3.5 K/mm3 (1.3-6.7); Neutrophils Percent Auto 73.2 % (45.5-73.1); Platelet Count Result 238 k/mm3 (150-375); Red Blood Count 4.72 M/mm3 (4.2-5.4); Red Cell Distribution Width 13.9 % (11.5-14.5); White Blood Count 4.8 K/mm3 (4.5-10.0)
[2021-08-25] MEDS: NITROGLYCERIN SL 0.4 MG TABLET SUBLINGUAL (23:00)
[2021-08-25] MEDS: GLUCAGON FOR INJ 1 MG VIAL IV PUSH (23:01)
[2021-08-25 23:05] LABS: Acetaminophen < 10 ug/mL (10-30); Ethanol < 10 mg/dL (<10); Salicylate < 1.0 mg/dL (2-20)
[2021-08-25 23:13] LABS: Alanine Aminotransferase 13 U/L (6-35); Alkaline Phosphatase 150 U/L (38-126); Anion Gap 5 mmol/L (8-16); Aspartate Amino Transferase 25 U/L (14-36); Bilirubin,Total 0.4 mg/dL (0.2-1.3); Blood Urea Nitrogen 8 mg/dL (7-17); Carbon Dioxide 30 mmol/L (22-30); Chloride 104 mmol/L (98-107); Estimated Glomerular Filt Rate > 60; Glucose 115 mg/dL (65-110); Potassium 3.7 mmol/L (3.4-5.0); Sodium 139 mmol/L (137-145)
[2021-08-25 23:32] LABS: SARS-CoV-2 RNA PCR Negative
--- NOTE | 2021-08-25 23:43 | ED.GENADULT ---
HPI - General Adult General Chief complaint: Fall Stated complaint: FALL, HIT HEAD Time Seen by Provider: 08/25/21 22:30 History of Present Illness HPI narrative: Patient is a 86-year-old female who presents the emergency department with chief complaint of pill stuck in esophagus fall out of wheelchair and depression. Patient reports she took one of her medications today and it got stuck in her lower esophagus and reports she was having difficulty getting it to clear. The patient states it felt very uncomfortable and reports that she was not able to fully passed the pill. The patient states because she got anxious she was in the wheelchair and flipped the wheelchair over and had pain in her left hip and also her head and neck. Patient reports no loss of consciousness. Upon arrival to the emergency department patient triggered positive for the Gage scale and was considered high risk for depression. Related Data Home Medications Medication Instructions Recorded Confirmed acetaminophen 325 mg capsule 650 mg PO Q6H PRN Pain 12/12/18 05/14/21 docusate sodium 100 mg capsule 100 mg PO DAILY 12/12/18 05/14/21 dorzolamide (PF) 2 % (PF) eye drops 1 drop RIGHT EYE BID 12/12/18 05/14/21 metoprolol tartrate 25 mg tablet 12.5 mg PO BID 12/12/18 05/14/21 omeprazole 20 mg capsule,delayed 20 mg PO DAILY 12/12/18 05/14/21 release ondansetron 4 mg disintegrating 4 mg PO PRN PRN Nausea 12/12/18 05/14/21 tablet sennosides 8.6 mg tablet (senna) 8.6 mg PO PRN PRN Constipation 12/12/18 05/14/21 gabapentin 100 mg capsule 100 mg PO TID 09/20/20 05/14/21 lisinopril 10 mg tablet 10 mg PO DAILY 09/20/20 05/14/21 prednisolone acetate 1 % eye 1 drp RIGHT EYE BID 09/20/20 05/14/21 drops,suspension trazodone 100 mg tablet 100 mg PO HS 09/20/20 05/14/21 diclofenac sodium 1 % topical gel 1 ea topical DAILY 10/16/20 05/14/21 trazodone 50 mg tablet 50 mg PO HS 10/16/20 05/14/21 doxycycline hyclate 100 mg tablet 100 mg PO BID 05/14/21 05/14/21 famotidine 20 mg tablet 20 mg PO DAILY 05/14/21 05/14/21 hydrocodone 5 mg-acetaminophen 325 1 tablet PO Q6H PRN Pain 05/14/21 05/14/21 mg tablet mirtazapine 15 mg tablet (Remeron) 15 mg PO HS 05/14/21 05/14/21 sucralfate 1 gram tablet 1 g PO TID 05/14/21 05/14/21 Allergies Allergy/AdvReac Type Severity Reaction Status Date / Time latex Allergy Unknown Hives / Verified 06/04/21 15:23 Red Face Penicillins Allergy Unknown Rash Verified 06/04/21 15:23 flu vaccine Allergy Severe Anaphylaxis Uncoded 06/04/21 15:23 MELINDA BANDAGE Allergy Mild HIVES Uncoded 06/04/21 15:23 Review of Systems Review of Systems: A 10 system review of systems was completed on the patient and is negative except for what is stated in the HPI. Nursing and ancillary documentation was reviewed. [facility] Past Medical History Medical History Anxiety Arthritis Blind Depression with anxiety Gastroesophageal reflux disease GERD (gastroesophageal reflux disease) Glaucoma Hiatal hernia History of peptic ulcer Hypertension Hypertension Insomnia 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 Polyneuropathy, unspecified Rheumatic arteritis Surgical History Surgical History History of appendectomy History of arthroscopy of right knee History of bilateral cataract extraction History of cholecystectomy History of corneal transplant History of gastrectomy (1979) Secondary to peptic ulcers. History of hysterectomy History of repair of hip fracture (10/2018) IT Gamma brandi with subsequent hardware removal on 10/30/2020. Family History Family History Father Venous thromboembolism Mother Acute myocardial infarction Sibling Acute myocardial infarction Sibling Diabetes mellitus Other Arthritis Social History Social History (Reviewed 08/25/21 @ 23:44
[2021-08-26] VITALS (12 sets, daily range): BP systolic 145–191; BP diastolic 69–106; PULSE 83–117; RESP 14–22; TEMP 36.5–36.9; O2SAT 85–97; BMI 16.0
[2021-08-26] MEDS: HYDROcodone/acetaminophen (*CRX) 5-325 MG TABLET 1 TAB PO ×2 (01:30→15:40)
[2021-08-26 01:58] LABS: Amphetamine Screen Urine Negative (Negative); Barbiturate Screen Urine Negative (Negative); Benzodiazepines Screen Urine Negative (Negative); Cannabinoid Screen Urine Negative (Negative); Cocaine Screen Urine Negative (Negative); Methadone Screen Urine Negative (Negative); Opiate Screen Urine Positive (Negative); Phencyclidine Screen Urine Negative (Negative)
[2021-08-26 01:59] LABS: Bacteria Urine Trace /hpf; RBC Urine 0-2 /hpf (0-2); Squamous Epithelial Cell Urine Occasional /hpf (Few)
[2021-08-26 02:01] LABS: Appearance Urine Clear (Clear); Bilirubin Urine Negative (Negative); Blood Urine Negative (Negative); Color Urine Yellow (Yellow); Glucose Urine UA Negative (Negative); Ketones Urine Negative (Negative); Leukocyte Esterase Ur Trace LEU/UL (Negative); Nitrate Urine Negative (Negative); Protein Urine Negative (Negative); Specific Grav Ur 1.015 (1.001-1.035); Urobilinogen Urine 0.2 mg/dL (<2.0)
[2021-08-26 02:02] LABS: Add Urine Microscopic? YES
--- NOTE | 2021-08-26 03:02 | PM.IMHP ---
H&P: HPI History of Present Illness Date/Time: 08/26/21 03:02 Chief Complaint: fall Narrative: this is an 86-year-old female [facility] resident with past medical history significant for gastroesophageal reflux disease depression with anxiety arthritis glaucoma hypertension legal blindness polyneuropathy rheumatoid arthritis. patient was brought for evaluation to the emergency room after got pill is stalking her throat fell and lost consciousness having difficulty walking and bearing weight on her leg as well as pain with movement. Patient also expressed ill or of discontent with correction. Screening for depression was highly scored. Preliminary workup was significant for a chest x-ray was cleared, CT of the head did not show acute intracranial abnormality, x-ray of the pelvis did not show acute fracture. However patient having excruciating pain upon bearing weight. Has been admitted for further evaluation management and treatment. Review of Systems Review of Systems: Choke on pill, fall, loss of consciousness. Constitutional: Constitutional: Denies chills, Denies difficulty sleeping, Denies fatigue, Denies fever(s), Denies malaise, Denies night sweats and Denies poor appetite Eyes: Eyes: Reports other ( blind) ENT: Denies dysphagia, Denies vertigo, Denies dizziness and Denies odynophagia Cardiovascular: Cardiovascular: Denies chest pain, Denies irregular heart rhythm, Denies lightheadedness, Denies palpitations and Denies dyspnea on exertion Respiratory: Respiratory: Denies cough, Denies excessive phlegm production and Denies dyspnea Gastrointestinal: Gastrointestinal: Denies abdominal pain, Denies dyspepsia, Denies heartburn, Denies diarrhea, Denies nausea and Denies vomiting Musculoskeletal: Musculoskeletal: Reports arthralgias ( hip) Integumentary/Breasts: Skin/Breast: Denies rash Psychiatric: Psychiatric: Reports depression, Reports hopelessness and Reports anhedonia Endocrine: Endocrine: Denies cold intolerance, Denies fatigue, Denies flushing, Denies heat intolerance, Denies polyphagia, Denies polydipsia and Denies palpitations Hematologic/Lymphatic: Hematologic/Lymphatic: Reports no additional hematologic/lymphatic complaints and Reports as per HPI Allergic/Immunologic: Allergic/Immunologic: Reports no additional allergic/immunologic complaints and Reports as per HPI PMFSH Past Medical History Medical History Anxiety Arthritis Blind Depression with anxiety Gastroesophageal reflux disease GERD (gastroesophageal reflux disease) Glaucoma Hiatal hernia History of peptic ulcer Hypertension Hypertension Insomnia 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 Polyneuropathy, unspecified Rheumatic arteritis Surgical History Surgical History History of appendectomy History of arthroscopy of right knee History of bilateral cataract extraction History of cholecystectomy History of corneal transplant History of gastrectomy (1979) Secondary to peptic ulcers. History of hysterectomy History of repair of hip fracture (10/2018) IT Gamma brandi with subsequent hardware removal on 10/30/2020. Family History Family History Father Venous thromboembolism Mother Acute myocardial infarction Sibling Acute myocardial infarction Sibling Diabetes mellitus Other Arthritis Social History Social History Social History: Patient is a DNR. She resides at [facility]. Smoking packs per day: 1 Smoking cigarettes per day: 20.0 Years smoked: 25 Smoking pack-years: 25.00 Smoking status: Former smoker Tobacco type: cigarettes Second hand tobacco smoke exposure: Yes Smoking end date: 05/14/21 Alcohol intake: never Substance use: never Substan
[2021-08-26] MEDS: SODIUM CHLORIDE 0.9% IV 1,000 ML 125 ML IV CONT ×2 (03:32→12:26)
[2021-08-26] MEDS: MORPHINE SULFATE (*CRX) 2 MG/ML INJ IV PUSH ×7 (03:43→19:53)
--- NOTE | 2021-08-26 04:31 | ADMGEN ---
This patient, Gema Laughlin, was admitted to Intensive Care Unit-6. Patient/family oriented to hospital policies and general routines including ID bracelet, bed and alarms, visiting hours, pain management, procedures, bathroom and other care routines, personal items, smoking policy, room service/diet, and visiting hours. Information on how to activate the Rapid Response Team has been discussed. Patient/Family are encouraged to report perceived risks to care and to ask questions if they do not understand what they are told or what they should do.
[2021-08-26] MEDS: ONDANSETRON INJ 4 MG/2 ML VIAL IV PUSH ×2 (04:55→11:19)
[2021-08-26] MEDS: HYDROmorphone HCL INJ (*CRX) 1 MG/ML SYR IV PUSH (04:56)
--- NOTE | 2021-08-26 11:54 | PCSTNOTE ---
Please refer to the Bedside Swallow Evaluation in the EMR. Please note, silent aspiration cannot be ruled out at bedside.
--- NOTE | 2021-08-26 13:36 | PCNSR ---
On 08/26/21, the student,Karyna Dillon, provided care and completed [facility] documentation on this patient. I have reviewed the student's documentation and agree with the findings.
--- NOTE | 2021-08-26 13:52 | PCNSR ---
On 08/26/21, the student, Camille Jay, provided care and completed [facility] documentation on this patient. I have reviewed the student's documentation and agree with the findings.
[2021-08-26] MEDS: LIDOCAINE 5% PATCH 2 PATCH TRANSDERM (15:39)
[2021-08-26] MEDS: DICLOFENAC SODIUM 1% 100 GM GEL (*BKC) 1 APPLIC TOPICAL (15:40)
[2021-08-26] MEDS: IBUPROFEN 600 MG TABLET PO (15:40)
[2021-08-26] MEDS: DORZOLAMIDE HCL 2% OPHTH DROPS 1 DROP RIGHT EYE (17:13)
[2021-08-26] MEDS: METOPROLOL TARTRATE 12.5 MG TABLET PO (17:13)
[2021-08-26] MEDS: SUCRALFATE 1 GM TABLET PO (17:14)
[2021-08-26] MEDS: prednisoLONE ACETATE 1% OPHTH 5 ML 1 DROP RIGHT EYE (17:14)
[2021-08-26] MEDS: GABAPENTIN 100 MG CAPSULE PO (17:14)
--- NOTE | 2021-08-26 18:00 | PCRCNOTE ---
Window of time for administration has passed. See next scheduled administration.
[2021-08-26] MEDS: MIRTAZAPINE 15 MG TABLET PO (19:47)
[2021-08-26] MEDS: traZODone HCL 50 MG TABLET 100 MG PO (19:47)
[2021-08-26] MEDS: traZODone HCL 50 MG TABLET PO (19:47)
[2021-08-26] MEDS: ALBUTEROL SULFATE NEB 2.5 MG/0.5 ML INH INHALATION (20:18)
[2021-08-26] MEDS: IPRATROPIUM BR 0.02% INH SOLN 0.5 MG/2.5 ML VIAL INHALATION (20:19)
[2021-08-27] VITALS (19 sets, daily range): BP systolic 125–187; BP diastolic 62–89; PULSE 77–112; RESP 16–20; TEMP 36.8–37.1; O2SAT 88–98
[2021-08-27] MEDS: IBUPROFEN 600 MG TABLET PO ×4 (01:30→23:34)
[2021-08-27] MEDS: SODIUM CHLORIDE 0.9% IV 1,000 ML 50 ML IV CONT (02:03)
[2021-08-27] MEDS: MORPHINE SULFATE (*CRX) 2 MG/ML INJ IV PUSH ×7 (02:23→23:39)
[2021-08-27] MEDS: ASPIRIN 81 MG CHEWABLE TABLET PO (08:07)
[2021-08-27] MEDS: PANTOPRAZOLE 40 MG TABLET PO (08:08)
[2021-08-27] MEDS: lisinopriL 10 MG TABLET PO (08:08)
[2021-08-27] MEDS: METOPROLOL TARTRATE 12.5 MG TABLET PO (08:08)
[2021-08-27] MEDS: DOCUSATE SODIUM 100 MG CAPSULE PO (08:08)
[2021-08-27] MEDS: SUCRALFATE 1 GM TABLET PO ×2 (08:08→17:41)
[2021-08-27] MEDS: FAMOTIDINE 20 MG TABLET PO (08:08)
[2021-08-27] MEDS: GABAPENTIN 100 MG CAPSULE PO ×3 (08:08→17:41)
[2021-08-27] MEDS: LIDOCAINE 5% PATCH 2 PATCH TRANSDERM (08:09)
[2021-08-27] MEDS: DORZOLAMIDE HCL 2% OPHTH DROPS 1 DROP RIGHT EYE ×2 (08:09→17:42)
[2021-08-27] MEDS: prednisoLONE ACETATE 1% OPHTH 5 ML 1 DROP RIGHT EYE ×2 (08:09→17:41)
[2021-08-27] MEDS: polyethylene glycoL 3350 17 GM POWD.PACK PO (08:10)
[2021-08-27] MEDS: ALBUTEROL SULFATE NEB 2.5 MG/0.5 ML INH INHALATION ×4 (08:12→20:06)
[2021-08-27] MEDS: IPRATROPIUM BR 0.02% INH SOLN 0.5 MG/2.5 ML VIAL INHALATION ×4 (08:12→20:06)
[2021-08-27 11:33] LABS: Alanine Aminotransferase 28 U/L (6-35); Albumin Level 3.4 g/dL (3.5-5.1); Alkaline Phosphatase 146 U/L (38-126); Anion Gap 5 mmol/L (8-16); Aspartate Amino Transferase 46 U/L (14-36); Bilirubin,Total 0.5 mg/dL (0.2-1.3); Blood Urea Nitrogen 7 mg/dL (7-17); Calcium 8.5 mg/dL (8.4-10.2); Carbon Dioxide 27 mmol/L (22-30); Chloride 106 mmol/L (98-107); Estimated CRCL calculation 47 ml/min; Estimated Glomerular Filt Rate > 60; Glucose 145 mg/dL (65-110); Phosphorus 3.1 mg/dL (2.5-4.5); Potassium 3.7 mmol/L (3.4-5.0); Sodium 138 mmol/L (137-145)
[2021-08-27 11:37] LABS: Basophils Percent Auto 0.4 % (0.2-1.2); Eosinophils Absolute Auto 0.2 K/mm3 (0-0.3); Eosinophils Percent Auto 2.9 % (0-4.4); Hematocrit 37.1 % (37.0-47.0); Hemoglobin 11.2 g/dL (12.0-15.0); Immature Granulocyte Absolute 0.02 K/mm3 (0.00-0.031); Immature Granulocyte Percent A 0.3 % (0-0.5); Lymphocytes Absolute Auto 0.97 K/mm3 (0.9-3.2); Lymphocytes Percent Auto 12.4 % (18.3-44.2); Mean Corpuscular HGB Conc 30.2 g/dl (32-36); Mean Corpuscular Hemoglobin 26.3 pg (26-34); Mean Corpuscular Volume 87.1 fl (80-100); Mean Platelet Volume 9.6 fl (7.4-10.4); Monocytes Absolute Auto 0.4 K/mm3 (0.1-0.6); Monocytes Percent Auto 5.1 % (2.6-8.5); Neutrophils Absolute Auto 6.2 K/mm3 (1.3-6.7); Neutrophils Percent Auto 78.9 % (45.5-73.1); Platelet Count Result 211 k/mm3 (150-375); Red Blood Count 4.26 M/mm3 (4.2-5.4); Red Cell Distribution Width 14.1 % (11.5-14.5); White Blood Count 7.9 K/mm3 (4.5-10.0)
[2021-08-27] MEDS: HYDROcodone/acetaminophen (*CRX) 7.5-325 MG TABLET 1 TAB PO ×3 (11:39→18:23)
--- NOTE | 2021-08-27 11:59 | PM.IMPN ---
Progress Note: A&P Assessment and Plan (1) Acute pain of left hip: Code(s): M25.552 - Pain in left hip Status: Acute (2) Depression: Code(s): F32.A - Depression, unspecified Status: Acute Additional Plan 86[facility]-old female [facility] resident with past medical history significant for gastroesophageal reflux disease depression,legal blindness polyneuropathy rheumatoid arthritis. patient was brought for evaluation to the emergency room after pill got stuck in her throat fell and lost consciousness, having difficulty walking and bearing weight on her leg as well as pain with movement.? Patient also expressed ill or of discontent with [facility].? Screening for depression was highly scored.? Found to have left hip racture. 1)Left Hip Fracture: Hip CT s/o left femoral neck and greater trochanteric fracture ?conservative management as per ortho Pain control, changed frequency o narcotics for better control c/w Lidoderm, ibuprofen and topical analgesics c/w stool softeners with high use of narcotics c/w gabapentin Add flexeril for muscle spasm 2)Depression with suicidal ideations: patient denies suicidal ideations patient medically stable for psych evaluation although not ready for discharge from hospital due to uncontrolled pain at the moment c/w sitter untill psych evaluation is complete 3)HTN+Tachycardia: Likely related to uncontrolled pain Will increase dose of lisinopril and metoprolol for now 4)Code:DNR 5)DVT ppx:Hep SQ 6)Dispo:pending improvement in pain Time Spent With Patient Time with patient: 15 - 25 minutes Subjective Date/time seen: 08/27/21 11:59 Interval history: patient uncomfortable in pain, crying Denies suicidal ideations/self harming thought process Review of Systems Constitutional: Constitutional: Reports lethargy ENT: Reports system reviewed and no additional complaints, except as documented Cardiovascular: Cardiovascular: Reports no additional cardiovascular complaints Respiratory: Respiratory: Reports no additional respiratory complaints Gastrointestinal: Gastrointestinal: Reports no additional gastrointestinal complaints Musculoskeletal: Musculoskeletal: Reports arthralgias Comments: hip pain+ Exam Const: General: in distress and uncomfortable Other: in distress and uncomfortable due to uncontrolled pain HENMT: Mouth: Yes moist mucous membranes Eyes: Sclera: sclerae normal Neck: Neck: supple Resp: Effort & Inspection: normal respiratory effort Auscultation: clear to auscultation bilaterally Cardio: Rate: regular rate Rhythm: regular rhythm GI: GI Palp: Yes Soft to palpation Auscultation: normal bowel sounds Neuro: Speech: normal speech Extrem: Other: left hip tenderness+ Psych: Mental Status: mental status grossly normal Affect: normal affect Objective Data Vital Signs Vital Signs: Vital Signs - 24 hr 08/26/21 14:00 08/26/21 15:10 08/26/21 17:13 Temperature 98.5 F Pulse Rate 100 96 Respiratory Rate 16 Blood Pressure 169/97 H Pulse Oximetry 85 L 94 Oxygen Delivery Nasal Cannula Oxygen Flow Rate 2 08/26/21 19:46 08/26/21 20:00 08/26/21 20:18 Temperature 98.3 F Pulse Rate 83 83 90 Respiratory Rate 19 19 18 Blood Pressure 147/69 H Pulse Oximetry 97 97 97 Oxygen Delivery Nasal Cannula Nasal Cannula Oxygen Flow Rate 2 2 08/26/21 20:18 08/26/21 20:28 08/27/21 06:00 Temperature 98.3 F Pulse Rate 90 90 96 Respiratory Rate 16 16 18 Blood Pressure 141/65 H Pulse Oximetry 97 Oxygen Delivery Oxygen Flow Rate 08/27/21 08:08 08/27/21 08:00 08/27/21 08:13 Temperature 98.5 F Pulse Rate 106 H 112 H Respiratory Rate 20 Blood Pressure 187/87 H Pulse Oximetry 95 94 Oxygen Delivery Nasal Cannula Oxygen Flow Rate 2 08/27/21 08:14 08/27/21 08:23 08/27/21 08:00 Temperature Pulse Rate 92 96 96 Respiratory Rate 16 16 16 Blood Pressure Pulse Oximetry 94 Oxyge
[2021-08-27] MEDS: CYCLOBENZAPRINE HCL 5 MG TABLET PO (12:54)
--- NOTE | 2021-08-27 16:12 | PM.CNOR ---
Assessment and Plan Assessment and plan (1) Nondisplaced fracture of greater trochanter of left femur: Code(s): S72.115A - Nondisplaced fracture of greater trochanter of left femur, initial encounter for closed fracture Status: Acute Assessment and Plan: 86-year-old female with a nondisplaced very subtle fracture of the left greater trochanter. She is nonambulatory but even if she were this at this point is not a surgical fracture. This can be treated with gradual mobilization getting her up into a chair and pain control. There was a phone number for her POA for me to call. I called twice and it went to [facility] directly so no message was left. I will follow while she is in the hospital. Thank you for the consultation. History of Present Illness HPI Consult date: 08/27/21 Chief complaint: Left hip pain, depression Narrative: 86-year-old female I was asked to see for a left hip fracture. She is essentially wheelchair bound for the past year and fell out of her wheelchair. She is also legally blind. She complains of pain in her left greater trochanteric area. History of right hip fracture stabilization and subsequent hardware removal last year. [facility] Past Medical History Medical History (Updated 08/27/21 @ 16:18 by Mino Berger MD) Anxiety Arthritis Blind Depression with anxiety Gastroesophageal reflux disease GERD (gastroesophageal reflux disease) Glaucoma Hiatal hernia History of peptic ulcer Hypertension Hypertension Insomnia 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 Nondisplaced fracture of greater trochanter of left femur Polyneuropathy, unspecified Rheumatic arteritis Surgical History Surgical History History of appendectomy History of arthroscopy of right knee History of bilateral cataract extraction History of cholecystectomy History of corneal transplant History of gastrectomy (1979) Secondary to peptic ulcers. History of hysterectomy History of repair of hip fracture (10/2018) IT Gamma brandi with subsequent hardware removal on 10/30/2020. Family History Family History Father Venous thromboembolism Mother Acute myocardial infarction Sibling Acute myocardial infarction Sibling Diabetes mellitus Other Arthritis Social History Social History Social History: Patient is a DNR. She resides at [facility]. Smoking packs per day: 1 Smoking cigarettes per day: 20.0 Years smoked: 25 Smoking pack-years: 25.00 Smoking status: Former smoker Second hand tobacco smoke exposure: Yes Alcohol intake: never Substance use: never Substance use type: does not use Additional living arrangements comments: Resident at [facility]. Spiritual care concerns: No Meds Home Medications and Allergies Home Medications Medication Instructions Recorded Confirmed Type acetaminophen 325 mg capsule 650 mg PO Q6H PRN Pain 12/12/18 08/26/21 History docusate sodium 100 mg capsule 100 mg PO DAILY 12/12/18 08/26/21 History metoprolol tartrate 25 mg tablet 12.5 mg PO BID 12/12/18 08/26/21 History omeprazole 20 mg capsule,delayed 20 mg PO DAILY 12/12/18 08/26/21 History release ondansetron 4 mg disintegrating 4 mg PO PRN PRN Nausea 12/12/18 08/26/21 History tablet sennosides 8.6 mg tablet (senna) 8.6 mg PO PRN PRN Constipation 12/12/18 08/26/21 History gabapentin 100 mg capsule 100 mg PO TID 09/20/20 08/26/21 History lisinopril 10 mg tablet 10 mg PO DAILY 09/20/20 08/26/21 History prednisolone acetate 1 % eye 1 drp RIGHT EYE BID 09/20/20 08/26/21 History drops,suspension trazodone 100 mg tablet 100 mg PO HS 09/20/20 08/26/21 History diclofenac sodium 1 % topical gel 1 ea topical DAILY 10/16/20 08/26/21 History trazodone 50 mg tablet 50 mg PO HS 10/16/20 08/26/21 History famotidin
[2021-08-27] MEDS: METOPROLOL TARTRATE 25 MG TABLET PO (17:41)
[2021-08-27] MEDS: traZODone HCL 50 MG TABLET 100 MG PO (20:38)
[2021-08-27] MEDS: traZODone HCL 50 MG TABLET PO (20:38)
[2021-08-27] MEDS: MIRTAZAPINE 15 MG TABLET PO (20:38)
[2021-08-27] MEDS: SENNOSIDES 8.6 MG TABLET PO (20:42)
[2021-08-28] MEDS: HYDROcodone/acetaminophen (*CRX) 7.5-325 MG TABLET 1 TAB PO (05:00)
[2021-08-28] MEDS: MORPHINE SULFATE (*CRX) 2 MG/ML INJ IV PUSH ×2 (05:00→07:34)
[2021-08-28 05:05] LABS: Anion Gap 2 mmol/L (8-16); Blood Urea Nitrogen 8 mg/dL (7-17); Calcium 8.2 mg/dL (8.4-10.2); Carbon Dioxide 34 mmol/L (22-30); Chloride 100 mmol/L (98-107); Estimated CRCL calculation 40 ml/min; Estimated Glomerular Filt Rate > 60; Glucose 103 mg/dL (65-110); Potassium 3.4 mmol/L (3.4-5.0); Sodium 136 mmol/L (137-145)
[2021-08-28 06:00] VITALS: BP 130/50; PULSE 103; RESP 14; TEMP 36.4; O2SAT 95
--- NOTE | 2021-08-28 06:04 | PC.NURSE ---
When asking the patient the suicide questions she stated, I do not want to kill myself. I was in so much pain I would say anything. I don't have a plan and I am eating.
[2021-08-28] MEDS: DICLOFENAC SODIUM 1% 100 GM GEL (*BKC) 1 APPLIC TOPICAL ×5 (07:35→20:51)
[2021-08-28 07:48] VITALS: O2SAT 94
[2021-08-28 08:00] VITALS: O2SAT 94
[2021-08-28] MEDS: SUCRALFATE 1 GM TABLET PO ×3 (08:36→17:19)
[2021-08-28] MEDS: METOPROLOL TARTRATE 25 MG TABLET PO ×2 (08:37→17:20)
[2021-08-28] MEDS: PANTOPRAZOLE 40 MG TABLET PO (08:37)
[2021-08-28] MEDS: IBUPROFEN 600 MG TABLET PO ×2 (08:37→17:18)
[2021-08-28] MEDS: GABAPENTIN 100 MG CAPSULE PO ×3 (08:37→17:20)
[2021-08-28] MEDS: lisinopriL 20 MG TABLET PO (08:37)
[2021-08-28] MEDS: FAMOTIDINE 20 MG TABLET PO (08:37)
[2021-08-28] MEDS: DORZOLAMIDE HCL 2% OPHTH DROPS 1 DROP RIGHT EYE ×2 (08:38→17:18)
[2021-08-28] MEDS: polyethylene glycoL 3350 17 GM POWD.PACK PO (08:38)
[2021-08-28] MEDS: prednisoLONE ACETATE 1% OPHTH 5 ML 1 DROP RIGHT EYE ×2 (08:39→17:19)
[2021-08-28] MEDS: LIDOCAINE 5% PATCH 2 PATCH TRANSDERM (08:39)
[2021-08-28] MEDS: ASPIRIN 81 MG CHEWABLE TABLET PO (08:40)
[2021-08-28] MEDS: CYCLOBENZAPRINE HCL 10 MG TABLET PO (09:34)
[2021-08-28] MEDS: HYDROcodone/acetaminophen (*CRX) 10-325 MG TABLET 1 TAB PO ×2 (09:34→17:19)
--- NOTE | 2021-08-28 11:35 | PCNFU ---
Addendum entered by Camille Jay 08/28/21 11:50: *25%-75% daily. Original Note: Nutrition Follow-Up Complete: Inadequate energy intake related to pain as evidenced by BMI 16.8. Goal: Adequate intake of at least 75% of meals. Pt is progressing towards goal. Pt current nutrition is Regular. Last recorded weight is 41.6 kg. Weight is improving. Bowel Motility: None reported. Labs Reviewed: Na:136, Cr:0.6 Meds Noted: Miralax, Protonix, Lopressor, Prinivil, Lidoderm, Heparin sodium, Pepcid, Skin: WNL Additional Notes: Pt receives Nutritional Ice Cream BID: 300kcals, 8 grams protein. Pt mentioned food tastes okay. She has not received her Nutritional Ice Cream. Intake is improving 25%-75% adil. Pt had no further questions or concerns. Agree with current diet order. Monitor intake, weight, and labs and follow up in 5 days.
--- NOTE | 2021-08-28 12:53 | PCOTNOTE ---
Will complete OT evaluation after WB status is entered. Will follow.
[2021-08-28] MEDS: HEPARIN SODIUM 5,000 UNITS/ML VIAL 5000 UNITS SUB-Q ×2 (13:13→21:00)
[2021-08-28] MEDS: HYDROmorphone HCL INJ (*CRX) 1 MG/ML SYR 0.5 MG IV PUSH (13:16)
--- NOTE | 2021-08-28 13:38 | PCNSR ---
On 08/28/21, the student, Camille Jay, provided care and completed [facility] documentation on this patient. I have reviewed the student's documentation and agree with the findings.
[2021-08-28 14:00] VITALS: BP 107/51; PULSE 79; RESP 18; TEMP 36.7; O2SAT 94
--- NOTE | 2021-08-28 15:31 | PM.IMPN ---
Progress Note: A&P Assessment and Plan (1) Acute pain of left hip: Code(s): M25.552 - Pain in left hip Status: Acute (2) Depression: Code(s): F32.A - Depression, unspecified Status: Acute Additional Plan 86-year-old female [facility] resident with past medical history significant for gastroesophageal reflux disease depression,legal blindness polyneuropathy rheumatoid arthritis. patient was brought for evaluation to the emergency room after pill got stuck in her throat fell and lost consciousness, having difficulty walking and bearing weight on her leg as well as pain with movement.? Patient also expressed ill or of discontent with correction.? Screening for depression was highly scored.? Found to have left hip racture. 1)Left Hip Fracture: Hip CT s/o left femoral neck and greater trochanteric fracture conservative management as per ortho Pain control, narcotics dose and requency adjusted again today c/w Lidoderm, ibuprofen and topical analgesics c/w stool softeners with high use of narcotics c/w gabapentin c/w flexeril for muscle spasm PT/OT if tolerated 2)Depression with suicidal ideations: patient denies suicidal ideations patient medically stable for psych evaluation although not ready for discharge from hospital due to uncontrolled pain at the moment c/w sitter untill psych evaluation is complete 3)HTN+Tachycardia: Likely related to uncontrolled pain c/w increased dose of lisinopril and metoprolol for now 4)Code:DNR. POA was at bedside, we discussed a little bit about hospice/comfort measures, no change in code status for now 5)DVT ppx:Hep SQ 6)Dispo:pending improvement in pain Time Spent With Patient Time with patient: 25 - 35 minutes Subjective Date/time seen: 08/28/21 15:31 Interval history: patient uncomfortable in pain, crying, POA at bedside Denies suicidal ideations/self harming thought process Review of Systems Constitutional: Constitutional: Reports fatigue, Reports lethargy and Reports weakness Eyes: Eyes: Reports other ( blind) ENT: Reports system reviewed and no additional complaints, except as documented Cardiovascular: Cardiovascular: Reports no additional cardiovascular complaints Respiratory: Respiratory: Reports no additional respiratory complaints Gastrointestinal: Gastrointestinal: Reports no additional gastrointestinal complaints Musculoskeletal: Musculoskeletal: Reports arthralgias Psychiatric: Psychiatric: Reports depression Exam Const: General: in distress and uncomfortable Other: in distress and uncomfortable due to uncontrolled pain HENMT: Mouth: Yes moist mucous membranes Eyes: Sclera: sclerae normal Other: patient is blind Neck: Neck: supple Resp: Effort & Inspection: normal respiratory effort Auscultation: clear to auscultation bilaterally Cardio: Rate: regular rate Rhythm: regular rhythm GI: Inspection: normal to inspection Auscultation: normal bowel sounds Neuro: General: patient oriented x3 Speech: normal speech Extrem: Other: left hip tenderness+ Psych: Mental Status: mental status grossly normal Affect: Sad affect present Objective Data Vital Signs Vital Signs: Vital Signs - 24 hr 08/27/21 16:21 08/27/21 16:42 08/27/21 16:40 Temperature Pulse Rate 105 H 88 Respiratory Rate 20 16 Blood Pressure 173/89 H Pulse Oximetry 97 98 Oxygen Delivery Nasal Cannula Oxygen Flow Rate 2 08/27/21 16:52 08/27/21 17:04 08/27/21 17:08 Temperature Pulse Rate 92 Respiratory Rate 16 Blood Pressure Pulse Oximetry 88 L 93 Oxygen Delivery Room Air Nasal Cannula Oxygen Flow Rate 1 08/27/21 17:41 08/27/21 20:06 08/27/21 20:11 Temperature Pulse Rate 103 H 82 82 Respiratory Rate 16 Blood Pressure Pulse Oximetry 94 Oxygen Delivery Nasal Cannula Oxygen Flow Rate 1 08/27/21 20:00 08/27/21 22:00 08/28/21 06:00 Temperature 98.7 F 97.6 F Pulse Rate 77 103 H Respi
--- NOTE | 2021-08-28 15:58 | PCPTNOTE ---
Will complete PT evaluation after WB status is entered. Will follow
[2021-08-28 16:40] LABS: Basophils Percent Auto 0.3 % (0.2-1.2); Eosinophils Absolute Auto 0.3 K/mm3 (0-0.3); Eosinophils Percent Auto 5.2 % (0-4.4); Hematocrit 32.7 % (37.0-47.0); Immature Granulocyte Absolute 0.02 K/mm3 (0.00-0.031); Immature Granulocyte Percent A 0.3 % (0-0.5); Lymphocytes Absolute Auto 1.04 K/mm3 (0.9-3.2); Lymphocytes Percent Auto 16.3 % (18.3-44.2); Mean Corpuscular HGB Conc 30.6 g/dl (32-36); Mean Corpuscular Hemoglobin 26.7 pg (26-34); Mean Corpuscular Volume 87.2 fl (80-100); Monocytes Absolute Auto 0.6 K/mm3 (0.1-0.6); Monocytes Percent Auto 9.1 % (2.6-8.5); Neutrophils Absolute Auto 4.4 K/mm3 (1.3-6.7); Neutrophils Percent Auto 68.8 % (45.5-73.1); Platelet Count Result 196 k/mm3 (150-375); Red Blood Count 3.75 M/mm3 (4.2-5.4); Red Cell Distribution Width 13.7 % (11.5-14.5); White Blood Count 6.4 K/mm3 (4.5-10.0)
[2021-08-28 20:00] VITALS: PULSE 75; RESP 18; O2SAT 95
[2021-08-28] MEDS: traZODone HCL 50 MG TABLET 100 MG PO (20:50)
[2021-08-28] MEDS: SENNOSIDES 8.6 MG TABLET PO (20:50)
[2021-08-28] MEDS: traZODone HCL 50 MG TABLET PO (20:50)
[2021-08-28] MEDS: MIRTAZAPINE 15 MG TABLET PO (20:51)
[2021-08-28] MEDS: SENNA/DOCUSATE SODIUM TABLET 1 TAB PO (20:54)
[2021-08-28 22:00] VITALS: BP 102/56; PULSE 75; RESP 18; TEMP 36.8; O2SAT 95
[2021-08-29] VITALS (9 sets, daily range): BP systolic 96–160; BP diastolic 54–68; PULSE 83–113; RESP 16–20; TEMP 36.4–37; O2SAT 93–96
[2021-08-29] MEDS: IBUPROFEN 600 MG TABLET PO ×4 (00:29→23:58)
[2021-08-29] MEDS: HEPARIN SODIUM 5,000 UNITS/ML VIAL 5000 UNITS SUB-Q ×3 (05:31→21:06)
--- NOTE | 2021-08-29 08:00 | PCOTNOTE ---
Spoke with nurse regarding necessity for WB status for pt.'s L LE prior to evaluation. Nurse agreed to follow up. Will follow.
[2021-08-29] MEDS: ASPIRIN 81 MG CHEWABLE TABLET PO (08:04)
[2021-08-29] MEDS: HYDROmorphone HCL INJ (*CRX) 1 MG/ML SYR 0.5 MG IV PUSH ×2 (08:04→21:57)
[2021-08-29] MEDS: CYCLOBENZAPRINE HCL 10 MG TABLET PO (08:04)
[2021-08-29] MEDS: METOPROLOL TARTRATE 25 MG TABLET PO ×2 (08:05→15:57)
[2021-08-29] MEDS: polyethylene glycoL 3350 17 GM POWD.PACK PO ×2 (08:05→15:47)
[2021-08-29] MEDS: prednisoLONE ACETATE 1% OPHTH 5 ML 1 DROP RIGHT EYE ×2 (08:05→15:47)
[2021-08-29] MEDS: PANTOPRAZOLE 40 MG TABLET PO (08:05)
[2021-08-29] MEDS: DORZOLAMIDE HCL 2% OPHTH DROPS 1 DROP RIGHT EYE ×2 (08:06→15:47)
[2021-08-29] MEDS: GABAPENTIN 100 MG CAPSULE PO ×3 (08:06→15:47)
[2021-08-29] MEDS: LIDOCAINE 5% PATCH 2 PATCH TRANSDERM (08:06)
[2021-08-29] MEDS: FAMOTIDINE 20 MG TABLET PO (08:06)
[2021-08-29] MEDS: DICLOFENAC SODIUM 1% 100 GM GEL (*BKC) 1 APPLIC TOPICAL ×4 (08:06→21:07)
[2021-08-29] MEDS: lisinopriL 20 MG TABLET PO (08:07)
[2021-08-29] MEDS: SUCRALFATE 1 GM TABLET PO ×3 (08:07→15:47)
--- NOTE | 2021-08-29 08:48 | PM.IMPN ---
Progress Note: A&P Assessment and Plan (1) Nondisplaced fracture of greater trochanter of left femur: Code(s): S72.115A - Nondisplaced fracture of greater trochanter of left femur, initial encounter for closed fracture Status: Acute Assessment and Plan: Hip CT s/o left femoral neck and greater trochanteric fracture, conservative management as per ortho -pain control with [place], cyclobenzaprine, ibuprofen, gabapentin, Dilaudid, lidocaine patch -patient on stool softeners and MiraLax -PT/OT to evaluate patient -ortho following -patient complains of more pain, will obtain a left hip x-ray, will discuss with Ortho regarding repeating CT or MRI (2) Depression: Code(s): F32.A - Depression, unspecified Status: Acute Assessment and Plan: Patient was transferred to the ICU as she had suicidal thoughts due to her pain -continue suicidal precautions -continue bedside sitter -currently denies suicidal thoughts/ideation -patient may require psych evaluation (3) Fall: Code(s): W19.XXXA - Unspecified fall, initial encounter Status: Acute Assessment and Plan: [facility] and had difficulty walking and bearing weight on her left leg. (4) Hypertension: Code(s): I10 - Essential (primary) hypertension Status: Acute Assessment and Plan: Continue lisinopril and metoprolol (5) DVT prophylaxis: Code(s): Z29.9 - Encounter for prophylactic measures, unspecified Status: Acute Assessment and Plan: Heparin SQ Plan Repeat left hip x-ray Will discuss with Ortho Encourage oral intake Additional Plan Discussed with patient and updated her with her condition and plan of care, I did tell her that we will repeat a left hip x-ray due to her pain and also discussed with orthopedic surgeon. Code status: Do not resuscitate This dictation may have been done utilizing a voice recognition system. Attempts have been made to correct errors. However, there may be uncorrected grammatical, spelling, and recognition errors present. Due to a high probability of clinically significant, life threatening deterioration, the patient required my highest level of preparedness to intervene emergently and I personally spent this critical care time directly and personally managing the patient. This critical care time included obtaining a history; examining the patient; pulse oximetry; ordering and review of studies; arranging urgent treatment with development of a management plan; evaluation of patient's response to treatment; frequent reassessment; and discussions with other providers. It was exclusive of separately billable procedures and treating other patients and teaching time. Please see Assessment and Plan section and the rest of the note for further information on patient assessment and treatment Subjective Date/time seen: 08/29/21 08:48 Interval history: 86-year-old female [facility] with past medical history significant for gastroesophageal reflux disease depression,legal blindness polyneuropathy rheumatoid arthritis. patient was brought for evaluation to the emergency room after pill got stuck in her throat fell and lost consciousness, having difficulty walking and bearing weight on her leg as well as pain with movement.? Patient also expressed ill or of discontent with pen[facility]entiary.? Screening for depression was highly scored.? Found to have left hip fracture. 08/29/2021: Patient lying comfortably in bed, upon questioning patient states she has 10/10 left hip pain. Denies any other symptoms. Denies any suicidal or homicidal thoughts. Vitals have been stable, patient on 1 L nasal cannula good O2 sats, afebrile, adequate urine output. Patient has decreased oral intake Review of Systems Review of Systems: All systems reviewed & are unremarkable except as noted in HPI and below Exam Narrative: General: Elderly female lying comfortably
[2021-08-29] MEDS: HYDROcodone/acetaminophen (*CRX) 10-325 MG TABLET 1 TAB PO ×4 (10:58→23:57)
[2021-08-29] MEDS: SENNOSIDES 8.6 MG TABLET PO (21:07)
[2021-08-29] MEDS: traZODone HCL 50 MG TABLET 100 MG PO (21:07)
[2021-08-29] MEDS: SENNA/DOCUSATE SODIUM TABLET 1 TAB PO (21:08)
[2021-08-29] MEDS: MIRTAZAPINE 15 MG TABLET PO (21:08)
[2021-08-29] MEDS: traZODone HCL 50 MG TABLET PO (21:09)
[2021-08-30] MEDS: HYDROmorphone HCL INJ (*CRX) 1 MG/ML SYR 0.5 MG IV PUSH ×3 (01:53→20:27)
[2021-08-30] MEDS: HEPARIN SODIUM 5,000 UNITS/ML VIAL 5000 UNITS SUB-Q (05:54)
[2021-08-30 06:00] VITALS: BP 114/70; PULSE 97; RESP 16; TEMP 36.6; O2SAT 94
[2021-08-30 08:00] VITALS: BP 127/65; PULSE 97; RESP 20; TEMP 36.8; O2SAT 95
[2021-08-30] MEDS: DORZOLAMIDE HCL 2% OPHTH DROPS 1 DROP RIGHT EYE ×2 (09:22→16:21)
[2021-08-30] MEDS: polyethylene glycoL 3350 17 GM POWD.PACK PO ×2 (09:22→16:21)
[2021-08-30] MEDS: LIDOCAINE 5% PATCH 2 PATCH TRANSDERM (09:22)
[2021-08-30] MEDS: prednisoLONE ACETATE 1% OPHTH 5 ML 1 DROP RIGHT EYE ×2 (09:23→16:21)
[2021-08-30] MEDS: CYCLOBENZAPRINE HCL 10 MG TABLET PO (09:23)
[2021-08-30] MEDS: SUCRALFATE 1 GM TABLET PO ×2 (09:23→16:22)
[2021-08-30] MEDS: GABAPENTIN 100 MG CAPSULE PO ×2 (09:23→16:22)
[2021-08-30] MEDS: ASPIRIN 81 MG CHEWABLE TABLET PO (09:23)
[2021-08-30] MEDS: lisinopriL 20 MG TABLET PO (09:24)
[2021-08-30] MEDS: DICLOFENAC SODIUM 1% 100 GM GEL (*BKC) 1 APPLIC TOPICAL ×3 (09:24→20:18)
[2021-08-30] MEDS: PANTOPRAZOLE 40 MG TABLET PO (09:24)
[2021-08-30] MEDS: FAMOTIDINE 20 MG TABLET PO (09:24)
[2021-08-30] MEDS: METOPROLOL TARTRATE 25 MG TABLET PO ×2 (09:24→16:22)
[2021-08-30] MEDS: IBUPROFEN 600 MG TABLET PO ×2 (09:24→16:22)
[2021-08-30] MEDS: HYDROcodone/acetaminophen (*CRX) 10-325 MG TABLET 1 TAB PO (14:22)
--- NOTE | 2021-08-30 15:20 | PCPTNOTE ---
Addendum entered by Lucinda Woodson, PT, DPT 08/30/21 15:21: therapy orders will be cancelled. Original Note: Patient is being discharged back to the senior care from which she came with hospice in place. Therapy orders will be d/c'd.
--- NOTE | 2021-08-30 15:20 | PCOTNOTE ---
Per medical record, [facility] and [facility] therapy order is being canceled.
--- NOTE | 2021-08-30 16:00 | PM.IMPN ---
Progress Note: A&P Assessment and Plan (1) Acute pain of left hip: Code(s): M25.552 - Pain in left hip Status: Acute Assessment and Plan: admit to regular medical floor will require CT of the pelvis supportive care (2) Depression: Code(s): F32.A - Depression, unspecified Status: Acute Additional Plan 86-year-old female care home resident with past medical history significant for gastroesophageal reflux disease depression,legal blindness polyneuropathy rheumatoid arthritis. patient was brought for evaluation to the emergency room after pill got stuck in her throat fell and lost consciousness, having difficulty walking and bearing weight on her leg as well as pain with movement.? Patient also expressed ill or of discontent with care home.? Screening for depression was highly scored.? Found to have left hip racture. 1)Left Hip Fracture: Hip CT s/o left femoral neck and greater trochanteric fracture conservative management as per ortho Pain control, narcotics dose and requency adjusted again today c/w Lidoderm, ibuprofen and topical analgesics c/w stool softeners with high use of narcotics c/w gabapentin c/w flexeril for muscle spasm PT/OT if tolerated 2)Depression with suicidal ideations: patient denies suicidal ideations patient medically stable for psych evaluation although not ready for discharge from hospital due to uncontrolled pain at the moment c/w sitter untill psych evaluation is complete 3)HTN+Tachycardia: Likely related to uncontrolled pain c/w increased dose of lisinopril and metoprolol for now 4)Code:DNR. POA was at bedside, we discussed a little bit about hospice/comfort measures, no change in code status for now 5)DVT ppx:Hep SQ 6)Dispo:pending improvement in pain 08/30/2021 interval history: patient with a nondisplaced fracture of the head does not requiring any surgical intervention seen by orthopedic surgeon recommended conservative management, patient is somnolent patient's family has decided to place the patient under hospice care and has signed agreement with [facility] hospice, will discharge the patient tomorrow per care home. Subjective Date/time seen: 08/30/21 16:00 86-year-old female care home resident with past medical history significant for gastroesophageal reflux disease depression,legal blindness polyneuropathy rheumatoid arthritis. patient was brought for evaluation to the emergency room after pill got stuck in her throat fell and lost consciousness, having difficulty walking and bearing weight on her leg as well as pain with movement.? Patient also expressed ill or of discontent with care home.? Screening for depression was highly scored.? Found to have left hip racture. 08/30/2021 interval history: patient with a nondisplaced fracture of the head does not requiring any surgical intervention seen by orthopedic surgeon recommended conservative management, patient is somnolent patient's family has decided to place the patient under hospice care and has signed agreement with [facility], will discharge the patient tomorrow per care home. Review of Systems Review of Systems: All systems reviewed & are unremarkable except as noted in HPI and below ROS unobtainable: Yes unobtainable due to medical condition Exam Narrative: Patient is comfortable, NAD HEENT: eyes are clear and none icteric LUNGS: normal respiratory effort ABD: not distended Lower extremities: no edema SKIN: nonjaundiced Neuro: grossly intact. Objective Data Vital Signs Vital Signs: Vital Signs - 24 hr 08/29/21 20:00 08/29/21 21:12 08/30/21 06:00 Temperature 98.1 F 98 F Pulse Rate 83 97 Respiratory Rate 18 16 Blood Pressure 96/57 L 114/70 Pulse Oximetry 95 96 94 Oxygen Delivery Nasal Cannula Oxygen Flow Rate 1 08/30/21 08:00 08/30/21 08:00 Temperature 98.3 F Pulse Rate 97 97 Respiratory Rate 20 20 Blood Pressure 127/65 Pulse Oximetry 95 95 Oxy
[2021-08-30 16:27] VITALS: BP 134/67; PULSE 79; RESP 20; TEMP 36.6; O2SAT 94
[2021-08-30 20:00] VITALS: O2SAT 94
[2021-08-30] MEDS: SENNOSIDES 8.6 MG TABLET PO (20:19)
[2021-08-30] MEDS: traZODone HCL 50 MG TABLET 100 MG PO (20:19)
[2021-08-30] MEDS: traZODone HCL 50 MG TABLET PO (20:19)
[2021-08-30] MEDS: MIRTAZAPINE 15 MG TABLET PO (20:19)
[2021-08-30] MEDS: SENNA/DOCUSATE SODIUM TABLET 1 TAB PO (20:19)
--- NOTE | 2021-08-30 21:02 | PC.NURSE ---
This patient, Gema Laughlin, was transferred to [3rd medical room 344 ] on 08/30/21 at 2102. Personal belongings sent with patient. Report given to [HENOK More ]. Appropriate documentation sent with patient.
[2021-08-30 21:55] VITALS: BP 130/59; PULSE 80; RESP 22; TEMP 36.6; O2SAT 90
--- NOTE | 2021-08-30 22:00 | PC.NURSE ---
Received by transfer from ICU at 2135. Pt is drowsy and responds to verbal stimuli. Miller in place and pt will be comfort measures and will go hospice tomorrow.
[2021-08-31] MEDS: IBUPROFEN 600 MG TABLET PO ×2 (00:50→09:56)
[2021-08-31] MEDS: ONDANSETRON INJ 4 MG/2 ML VIAL IV PUSH (03:05)
[2021-08-31 05:15] VITALS: BP 139/66; PULSE 120; RESP 20; TEMP 36.5; O2SAT 90
[2021-08-31] MEDS: DORZOLAMIDE HCL 2% OPHTH DROPS 1 DROP RIGHT EYE (09:56)
[2021-08-31] MEDS: DICLOFENAC SODIUM 1% 100 GM GEL (*BKC) 1 APPLIC TOPICAL (09:56)
[2021-08-31] MEDS: ASPIRIN 81 MG CHEWABLE TABLET PO (09:56)
[2021-08-31] MEDS: polyethylene glycoL 3350 17 GM POWD.PACK PO (09:56)
[2021-08-31] MEDS: GABAPENTIN 100 MG CAPSULE PO (09:57)
[2021-08-31] MEDS: FAMOTIDINE 20 MG TABLET PO (09:57)
[2021-08-31] MEDS: LIDOCAINE 5% PATCH 2 PATCH TRANSDERM (09:57)
[2021-08-31] MEDS: PANTOPRAZOLE 40 MG TABLET PO (09:58)
[2021-08-31] MEDS: prednisoLONE ACETATE 1% OPHTH 5 ML 1 DROP RIGHT EYE (09:59)
[2021-08-31] MEDS: SUCRALFATE 1 GM TABLET PO (09:59)
[2021-08-31 10:00] VITALS: PULSE 87
[2021-08-31] MEDS: METOPROLOL TARTRATE 25 MG TABLET PO (10:00)
[2021-08-31] MEDS: lisinopriL 20 MG TABLET PO (10:00)
--- NOTE | 2021-08-31 10:57 | PM.DS ---
DS: Admitting Diagnosis Discharge Date 08/31/2021 Admitting Diagnosis fall DS: Discharge Diagnosis Discharge Diagnosis (1) Nondisplaced fracture of greater trochanter of left femur: Code(s): S72.115A - Nondisplaced fracture of greater trochanter of left femur, initial encounter for closed fracture Status: Acute (2) Acute pain of left hip: Code(s): M25.552 - Pain in left hip Status: Acute Assessment and Plan: admit to regular medical floor will require CT of the pelvis supportive care (3) Depression: Code(s): F32.A - Depression, unspecified Status: Acute DS: Summary Hospital Course Reason for hospitalization: fall Narrative: ?this is an 86-year-old female care home resident with past medical history significant for gastroesophageal reflux disease depression with anxiety arthritis glaucoma hypertension legal blindness polyneuropathy rheumatoid arthritis. patient was brought for evaluation to the emergency room after got pill is stalking her throat fell and lost consciousness having difficulty walking and bearing weight on her leg as well as pain with movement.? Patient also expressed ill or of discontent with care home.? Screening for depression was highly scored.? Preliminary workup was significant for a chest x-ray was cleared, CT of the head did not show acute intracranial abnormality, x-ray of the pelvis did not show acute fracture.? However patient having excruciating pain upon bearing weight.? Has been admitted for further evaluation management and treatment. Hospital Course: ? patient with a nondisplaced fracture of the head does not requiring any surgical intervention seen by? orthopedic surgeon recommended conservative management, patient is somnolent patient's family has decided to place the patient under hospice care and has [facility],? will discharge the patient tomorrow per care home. patient was seen by crisis team and has been cleared and patient family has decided to place the patient under hospice care, will remove suicidal precaution will discharge the patient to nursing where she will be admitted under hospice care Time Spent with Patient Time attestation: Total time spent providing and/or coordinating discharge services: Exam Narrative: Patient is comfortable, NAD HEENT: eyes are clear and none icteric LUNGS: normal respiratory effort ABD: not distended Lower extremities: no edema SKIN: nonjaundiced Neuro: grossly intact. Discharge Plan Discharge Attending physician on discharge: Alvaro Banks Consulting providers: Figueroa Taylor ; Mino Berger ; Junior Oakes ; Roddy Cash ; Kaleb Hoover ; Manuel Stockton ; Anaid Rod ; Jamaica Nelson Discharging Clinician: Alvaro Banks Patient Disposition: Hospice - Home Activity: as tolerated Diet: as tolerated Discharge Instructions: Patient being discharged to OR where she will be admitted under hospice care Patient Instructions: Pain Management in Older Adults (DC), Pain Management (DC), Depression (DC), Suicide Prevention (DC) Stand Alone Forms: General Discharge Information Discharge Medications: New hydrocodone-acetaminophen 10-300 mg tablet 1 tablet PO Q4-6H PRN (Reason: pain) Qty: 12 0RF Continued docusate sodium 100 mg capsule 100 mg PO DAILY metoprolol tartrate 25 mg tablet 12.5 mg PO BID Rx Instructions: 1/2 tab twice daily ondansetron 4 mg tablet,disintegrating 4 mg PO PRN PRN (Reason: Nausea) sennosides [senna] 8.6 mg tablet 8.6 mg PO PRN PRN (Reason: Constipation) omeprazole 20 mg capsule,delayed release(DR/EC) 20 mg PO DAILY acetaminophen 325 mg capsule 650 mg PO Q6H PRN (Reason: Pain) sucralfate 1 gram Tablet 1 g PO TID famotidine 20 mg Tablet 20 mg PO DAILY mirtazapine [Remeron] 15 mg Tablet 15 mg PO HS lidocaine [Lidoderm] 5 % Adhesive
[2021-08-31 11:44] LABS: EDCOVIDSCREEN Negative (Negative)
[2021-08-31 13:29] VITALS: BP 162/74; PULSE 97; RESP 16; TEMP 35.9; O2SAT 92
== END 2021-08-31 13:50 | disposition hospice, home (50) | DRG 536 ==
LOC: ANHED 08-26 03:28 → ANHICU 08-26 03:41 → ANH3MED 08-31 10:57 → ANHICU 09-02 13:59
PROVIDERS: Internal Medicine; Admitting Provider Internal Medicine; Emergency Provider Emergency Medicine; Visit Provider Family Medicine
DX: S72.115A Nondisplaced fracture of greater trochanter of left femur, initial encounter for closed fracture (principal); S72.092A Other fracture of head and neck of left femur, initial encounter for closed fracture; Z20.822 Contact with and (suspected) exposure to COVID-19; W05.0XXA Fall from non-moving wheelchair, initial encounter; M19.90 Unspecified osteoarthritis, unspecified site; F41.8 Other specified anxiety disorders; K21.9 Gastro-esophageal reflux disease without esophagitis; H40.9 Unspecified glaucoma; K44.9 Diaphragmatic hernia without obstruction or gangrene; I10 Essential (primary) hypertension; H54.8 Legal blindness, as defined in USA; G62.9 Polyneuropathy, unspecified; I00 Rheumatic fever without heart involvement; Z66 Do not resuscitate; Z87.11 Personal history of peptic ulcer disease; Z90.49 Acquired absence of other specified parts of digestive tract; Z98.42 Cataract extraction status, left eye; Z98.41 Cataract extraction status, right eye; Z94.7 Corneal transplant status; Z87.891 Personal history of nicotine dependence
CPT/HCPCS: 36415; 70450; 71045; 72125; 73502; 73700; 80048; 80053; 80307; 81001; 83735; 84100; 84443; 85025; 87426; 92610; 93005; 94640; 96361; 96374; 96375; 96376; 99285; A9270; C9803; G0378; J1170; J1610; J1644; J2270; J2405; J7030; U0003; U0005

== ENCOUNTER 2021-12-01 14:06 | Emergency (ER) | payer OTHER, SELFPAY ==
[2021-12-01] VITALS (17 sets, daily range): BP systolic 130–176; BP diastolic 74–106; PULSE 86–99; RESP 14–19; TEMP 37.2; O2SAT 92–97
--- NOTE | ~2021-12-01 | CT_ITS ---
EXAMINATION: CT pelvis wo con DATE: 12/01/2021 17:13 INDICATION: Fall from bed today. Lateral right hip pain. Right subcapital femoral area and left inter trochanteric area were not cleared on plain radiography today. TECHNIQUE: Computed tomography (CT) of the pelvis was performed without intravenous contrast. Automat ed exposure control and iterative reconstruction technique were employed. Exam dose: 117.12 mGy-cm t otal exam DLP. COMPARISON: 11/27/2021 pelvis and right hip 11/27/2021 right femur 08/29/2021 left hip 08/26/2021 CT left hip 12/27/2020 right hip FINDINGS: There is osteopenia. Levoscoliosis an degenerative disc disease of the lumbar spine. The pubic symphysis and sacroiliac joints are intact. There is a subacute comminuted fracture of the greater trochanter are of the left hip. The tracts of former intramedullary nail and compression screw of the proximal right femur are noted. There are lucencies of the cortex of the superior and lateral aspect of the right femoral head consis tent with femoral head fracture, with some patchy sclerosis and lucency suggesting avascular necrosis . IMPRESSION: Right femoral head fracture, which may be due to trauma and/or collapse secondary to samir scular necrosis Avascular necrosis of right femoral head Removal of compression screw and intramedullary nail of right femur Subacute comminuted fracture of greater trochanter of left hip Osteopenia Reviewed, dictated and finalized at [facility]. Reviewed, dictated and finalized at [facility]. IMPRESSION: Right femoral head fracture, which may be due to trauma and/or col lapse secondary to avascular necrosis Avascular necrosis of right femoral head Removal of compression screw and intramedullary nail of right femur Subacute comminuted fracture of greater trochanter of left hip Osteopenia
--- NOTE | ~2021-12-01 | CT_ITS ---
EXAMINATION: CT brain wo con DATE: 12/01/2021 15:28 INDICATION: Status post fall TECHNIQUE: Computed tomography (CT) of the head was performed without intravenous contrast. The dose- length product was 832.33 mGy-cm. Automated exposure control and iterative reconstruction technique w ere employed. COMPARISON: CT dated 08/25/2021 FINDINGS: Mild generalized atrophy. There are scattered mild periventricular and subcortical white ma tter changes, most likely related to small vessel ischemic disease (microangiopathy). No ventriculome karis or midline shift. Basilar cisterns are patent. Small focal chronic infarct left cerebellum. No a cute intracranial hemorrhage, infarction, mass or mass effect. Paranasal sinuses and mastoids are pne umatized. No depressed skull fractures. There is intracranial atherosclerosis. There is a chronic atr ophic calcified left orbit. IMPRESSION: 1. No acute intracranial abnormality. 2: Small chronic left cerebellar infarction. 3: Chronic age-related findings. Reviewed, dictated and finalized at [facility].
--- NOTE | ~2021-12-01 | CT_ITS ---
EXAMINATION: CT cervical spine wo con DATE: 12/01/2021 15:29 INDICATION: Head injury. Neck pain. TECHNIQUE: Computed tomography (CT) of the cervical spine was performed without intravenous contrast. Automated exposure control and iterative reconstruction technique were employed. The dose-length pro duct was 92.27 mGy-cm. COMPARISON: CT cervical spine 08/25/2021 FINDINGS: There is mild scarring at the lung apices. There is mild chronic anterior wedging of C4 jamaal tebral body. There is moderately decreased disc height at C3-C4 and C4-C5 and severely decreased disc height at C5-C6 and C6-C7. The following disc levels are specifically discussed: C2-C3: There is mild left uncovertebral joint osteoarthritis. There is severe bilateral facet joint o steoarthritis. There is no neural foraminal stenosis. There is no central canal stenosis. C3-C4: There is mild right and moderate left uncovertebral joint osteoarthritis. There is mild right and severe left facet joint osteoarthritis. There is mild left neural foraminal stenosis. There is mi ld central canal stenosis. C4-C5: There is mild bilateral uncovertebral joint osteoarthritis. There is moderate right facet join t osteoarthritis. There is ankylosis of left facet joint with moderate hypertrophy. There is mild cal ateral neural foraminal stenosis. There is no central canal stenosis. C5-C6: There is severe bilateral uncovertebral joint osteoarthritis. There is severe bilateral facet joint osteoarthritis. There is mild bilateral neural foraminal stenosis. There is mild central canal stenosis. C6-C7: There is moderate right and severe left uncovertebral joint osteoarthritis. There is severe bi lateral facet joint osteoarthritis. There is mild bilateral neural foraminal stenosis. There is mild central canal stenosis. C7-T1: There is no uncovertebral joint osteoarthritis. There is mild right and severe left facet join t osteoarthritis. There is mild left neural foraminal stenosis. There is no central canal stenosis. IMPRESSION: 1. No fracture. 2. Severe cervical spondylosis. Reviewed, dictated and finalized at [facility].
--- NOTE | ~2021-12-01 | XR_ITS ---
XR hip RT 2V w AP pelvis, XR femur RT min 2V 12/01/2021 16:21 Indication: Status post fall. Increased pain. Procedure: 3 views of the right hip including AP pelvis. 2 views of the right femur. Comparison: 11/15/2020 and 08/25/2021 Findings: There is a lucency in the subcapital location of the right femur, suspicious for nondisplac ed fracture. There is deformity of the right femur proximally at the intertrochanteric location, like ly related to remote trauma with heterotopic ossification. There is lucency in the left femoral inter trochanteric region as well, suspicious for nondisplaced fracture. Osteopenia. Impression: 1: Possible nondisplaced fractures involving the right femoral subcapital and left femoral intertroch anteric locations. Recommend correlation with CT. Reviewed, dictated and finalized at location [facility]. Impression: 1: Possible nondisplaced fractures involving the right femoral subcapital and l eft femoral intertrochanteric locations. Recommend correlation with CT. Impression: 1: Possible nondisplaced fractures involving the right femoral subcapital and l eft femoral intertrochanteric locations. Recommend correlation with CT.
--- NOTE | 2021-12-01 15:15 | PC.NURSE ---
Patient off unit to Radiology.
--- NOTE | 2021-12-01 15:38 | PC.NURSE ---
EDP at bedside to assess pt.
--- NOTE | 2021-12-01 15:43 | ED.GENADULT ---
HPI - General Adult General Chief complaint: Fall Stated complaint: Fall, Head/ Hip Pain Time Seen by Provider: 12/01/21 14:09 History of Present Illness HPI narrative: This is an 86-year-old female who is presenting to ED following a fall. Patient lives at and resume nursing and rehab. She is trying to get out of bed this morning when she fell and landed on the floor. She does say that she struck her head. positive loss of consciousness but is not on any blood thinners. Also complaining of some mild neck pain at that time. Her main complaint is right hip pain. Patient denies chest pain, difficulty breathing, abdominal pain. She denies any chest pain palpitations or dizziness preceding the fall. She denies urinary symptoms. Related Data Home Medications Medication Instructions Recorded Confirmed acetaminophen 325 mg capsule 650 mg PO Q6H PRN Pain 12/12/18 08/26/21 docusate sodium 100 mg capsule 100 mg PO DAILY 12/12/18 08/26/21 metoprolol tartrate 25 mg tablet 12.5 mg PO BID 12/12/18 08/26/21 omeprazole 20 mg capsule,delayed 20 mg PO DAILY 12/12/18 08/26/21 release ondansetron 4 mg disintegrating 4 mg PO PRN PRN Nausea 12/12/18 08/26/21 tablet sennosides 8.6 mg tablet (senna) 8.6 mg PO PRN PRN Constipation 12/12/18 08/26/21 gabapentin 100 mg capsule 100 mg PO TID 09/20/20 08/26/21 lisinopril 10 mg tablet 10 mg PO DAILY 09/20/20 08/26/21 prednisolone acetate 1 % eye 1 drp RIGHT EYE BID 09/20/20 08/26/21 drops,suspension trazodone 100 mg tablet 100 mg PO HS 09/20/20 08/26/21 diclofenac sodium 1 % topical gel 1 ea topical DAILY 10/16/20 08/26/21 trazodone 50 mg tablet 50 mg PO HS 10/16/20 08/26/21 famotidine 20 mg tablet 20 mg PO DAILY 05/14/21 08/26/21 hydrocodone 5 mg-acetaminophen 325 1 tablet PO Q6H PRN Pain 05/14/21 08/26/21 mg tablet mirtazapine 15 mg tablet (Remeron) 15 mg PO HS 05/14/21 08/26/21 sucralfate 1 gram tablet 1 g PO TID 05/14/21 08/26/21 dorzolamide 22.3 mg-timolol 6.8 1 drp RIGHT EYE QAM AND QHS 08/26/21 08/26/21 mg/mL eye drops indomethacin 25 mg capsule 25 mg PO BID PRN Pain 08/26/21 08/26/21 ipratropium 0.5 mg-albuterol 3 mg 3 ml inhalation QID 08/26/21 08/26/21 (2.5 mg base)/3 mL nebulization soln polyethylene glycol 3350 17 17 g PO DAILY 08/26/21 08/26/21 gram/dose oral powder (Miralax) Allergies Allergy/AdvReac Type Severity Reaction Status Date / Time Influenza Virus Vaccines Allergy Severe Anaphylaxis Verified 12/01/21 17:35 latex Allergy Unknown Hives / Verified 12/01/21 17:35 Red Face Penicillins Allergy Unknown Rash Verified 12/01/21 17:35 morphine Allergy Swelling Verified 12/01/21 17:35 of Lip/Tongue/Throat MELINDA BANDAGE Allergy Mild HIVES Uncoded 12/01/21 17:35 Review of Systems Review of Systems: CONSTITUTIONAL: Denies night sweats. EYES: No eye pain ENT: Denies rhinorrhea CARDIOVASCULAR: Denies palpitations RESPIRATORY: Denies hemoptysis GASTROINTESTINAL: Denies hematemesis GENITOURINARY: Denies hematuria. SKIN: Denies rash MUSCULOSKELETAL: Denies myalgia. NEUROLOGIC: Denies weakness. PSYCHIATRIC: Denies delusions PMFSH Past Medical History Medical History Anxiety Arthritis Blind Depression with anxiety Gastroesophageal reflux disease GERD (gastroesophageal reflux disease) Glaucoma Hiatal hernia History of peptic ulcer Hypertension Hypertension Insomnia 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 Nondisplaced fracture of greater trochanter of left femur Polyneuropathy, unspecified Rheumatic arteritis Surgical History Surgical History History of appendectomy History of arthroscopy of right knee History of bilateral cataract extraction History of cholecystectomy History of corneal transplant History of gastrectomy (1979) Secondary to peptic ulcers. History of hysterectomy History of repair of hip fracture (10/2018) IT
--- NOTE | 2021-12-01 16:06 | PC.NURSE ---
Patient off unit to Radiology.
[2021-12-01] MEDS: QUEtiapine FUMARATE 25 MG TABLET PO (21:46)
[2021-12-01] MEDS: LORazepam (*CRX) 1 MG TABLET PO (21:46)
--- NOTE | 2021-12-01 22:57 | PC.NURSE ---
assumed care of pt. at this time. report from HENOK Navarro
--- NOTE | 2021-12-01 23:00 | PC.NURSE ---
Patient report given to HENOK Guerra. All questions answered and care of patient transferred.
[2021-12-01] MEDS: LORazepam INJ (*CRX) 2 MG/ML VIAL 1 MG IM (23:26)
--- NOTE | 2021-12-01 23:30 | PC.NURSE ---
pt. repeatedly requesting sleeping pill. pt. unwilling to remain in bed. ERP notified.
--- NOTE | 2021-12-02 01:45 | PC.NURSE ---
RN attempted to chart pt out. unsuccessful. Cannot depart pt from ed track board
[2021-12-02 01:46] VITALS: BP 144/74; PULSE 82; RESP 14; O2SAT 96
== END 2021-12-02 07:13 ==
PROVIDERS: Emergency Provider Emergency Medicine
DX: S72.051A Unspecified fracture of head of right femur, initial encounter for closed fracture (principal); M87.9 Osteonecrosis, unspecified; W06.XXXA Fall from bed, initial encounter; K21.9 Gastro-esophageal reflux disease without esophagitis; I10 Essential (primary) hypertension; Z87.891 Personal history of nicotine dependence
CPT/HCPCS: 70450; 72125; 72192; 73502; 73552; 96365; 96372; 99284; A9270; J0131; J2060